=== PATIENT | female | born 1950 | race Caucasian/White ===

== ENCOUNTER 2018-01-26 16:05 | Inpatient (IN) ==
[2018-01-26] MEDS ORDERED: Morphine Inj 4 MG/ML Vial IV.PUSH ONE (16:23)
[2018-01-26] MEDS ORDERED: Lidocaine 1%/Epinephrine 1:100,000 Inj 50 ML Vial INFILTRATN ONE (16:23)
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
[2018-01-26 16:55] LABS: Baso # (Auto) 0.1 th/mm3 (0.0-0.2); Baso % (Auto) 0.5 % (0.0-2.0); Eos # (Auto) 0.1 th/mm3 (0.0-0.4); Eos % (Auto) 0.4 % (0.0-4.0); Hemoglobin 10.9 gm/dL (11.6-15.3); Lymph # (Auto) 2.2 th/mm3 (1.0-4.8); Lymph % (Auto) 15.9 % (9.0-44.0); Mean Corpuscular HGB Conc 35.2 % (32.0-36.0); Mean Corpuscular Hemoglobin 32.1 pg (27.0-34.0); Mean Corpuscular Volume 91.3 fL (80.0-100.0); Mean Platelet Volume 7.8 fL (7.0-11.0); Mono # (Auto) 0.8 th/mm3 (0.0-0.9); Neut # (Auto) 10.8 th/mm3 (1.8-7.7); Neut % (Auto) 77.2 % (16.0-70.0); Platelet Count 322 th/mm3 (150-450); White Blood Count 13.9 th/mm3 (4.0-11.0)
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
[2018-01-26 17:21] LABS: Calcium 8.3 mg/dL (8.5-10.1); Potassium 3.7 meq/L (3.5-5.1)
[2018-01-26 17:35] LABS: Activated Partial Thrombo Time 19.2 sec (24.3-30.1); Prothrombin Time 10.3 sec (9.8-11.6)
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
[2018-01-26] MEDS ORDERED: Morphine Sulfate Inj 2 MG/ML Vial IV.PUSH ONE (18:21)
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
[2018-01-26] MEDS ORDERED: ceFAZolin 2 GM Premix Inj 2 GM/50 ML PIGGYBACK IV.SIG ONE (18:44)
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
[2018-01-26] MEDS ORDERED: Naloxone Inj 0.4 MG/ML Vial IV.PUSH PRN ×3 (20:00→22:19)
[2018-01-26] MEDS ORDERED: Bisacodyl 10 MG Supp RECTAL PRN (20:00)
[2018-01-26] MEDS ORDERED: Post-op Orders (for Pharmacy) OTHER ONE (20:00)
[2018-01-26] MEDS ORDERED: Lidocaine PF 1% Inj 30 ML Vial ONE (20:09)
[2018-01-26] MEDS ORDERED: HYDROmorphone PF Inj 2 MG/ML Vial ONE (20:09)
[2018-01-26] MEDS ORDERED: HYDROmorphone PF Inj 2 MG/ML Vial IV.PUSH ONE (20:15)
[2018-01-26] MEDS: Sod Chloride 0.9% Inj 1,000 ML IV.CONT SCH (21:08)
--- NOTE | 2018-01-26 21:16 | XR ---
EXAM DATE: 01/26/2018 12:00 AM EDT AGE/SEX: 67 years / Female INDICATIONS: Status post left sided chest tube placement. CLINICAL DATA: This is the patient's subsequent encounter. Patient reports that signs and symptoms h ave been present for 1 day and indicates a pain score of 8/10. MEDICAL/SURGICAL HISTORY: None. None. COMPARISON: [facility] [place], CT CHEST W CONTRAST, 01/26/2018. [facility] [place], CHEST 1V SINGLE AP, 01/26/2018. . FINDINGS: A left chest tube is now present. Tip projects over the left suprahilar region. No definite pneumotho rax but there is left chest wall emphysema. There is patchy parenchymal consolidation of the left robert g. Right lung appears clear. Left clavicle and multiple left rib fractures are again noted. CONCLUSION: 1. New left chest tube. 2. No perceptible pneumothorax but left chest wall emphysema again noted. 3. Patchy parenchymal consolidation of the left lung, mostly at the base. 4. No perceptible pleural effusion/hemothorax. 5. Left clavicle and rib fractures again seen. 6. Right lung appears clear. Electronically signed by: Martinez Silva MD 01/26/2018 9:14 PM EDT
[2018-01-26] MEDS ORDERED: Morphine Inj 30 MG/30 ML PCA.VIAL PCA PRN (22:19)
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
[2018-01-26] MEDS: Senna/Docusate Sodium 8.6/50 MG Tablet PO SCH (22:24)
[2018-01-26] MEDS ORDERED: Sodium Chloride 0.9% 2 ML Flush PRN IV.FLUSH (22:59)
[2018-01-27] MEDS ORDERED: ceFAZolin Inj 1,000 MG in Sodium Chlor 0.9% Inj 100 ML IV.SIG SCH (04:00)
--- NOTE | 2018-01-27 04:33 | XR ---
EXAM DATE: 01/27/2018 12:00 AM EDT AGE/SEX: 67 years / Female INDICATIONS: Shortness of breath. CLINICAL DATA: This is the patient's subsequent encounter. Patient reports that signs and symptoms h ave been present for 2 days and indicates a pain score of Nonresponsive. MEDICAL/SURGICAL HISTORY: Hypertension. Smoker. Breast augmentation. COMPARISON: . FINDINGS: Left thoracostomy tube is stable and satisfactory position. Persistent left chest pleural-parenchymal opacity. Mild subcutaneous emphysema. Rib and clavicle fractures. Right chest stable and clear. CONCLUSION: Left thoracostomy tube stable in satisfactory position. No new acute findings Electronically signed by: Martinez Desai MD 01/27/2018 4:32 AM EDT
[2018-01-27 06:13] LABS: VBG Base Excess -2.2 mmol/L (-2-2); VBG PCO2 49 mmHG (44-48); VBG PO2 46 mmHG (35-40)
[2018-01-27 07:04] LABS: Baso % (Auto) 0.1 % (0.0-2.0); Hematocrit 32.6 % (35.0-46.0); Hemoglobin 10.8 gm/dL (11.6-15.3); Lymph % (Auto) 9.3 % (9.0-44.0); Mean Corpuscular HGB Conc 33.3 % (32.0-36.0); Mean Corpuscular Hemoglobin 30.4 pg (27.0-34.0); Mean Corpuscular Volume 91.3 fL (80.0-100.0); Mean Platelet Volume 8.2 fL (7.0-11.0); Neut # (Auto) 8.9 th/mm3 (1.8-7.7); Neut % (Auto) 81.6 % (16.0-70.0); Platelet Count 286 th/mm3 (150-450); Red Blood Count 3.57 mil/mm3 (4.00-5.30); Red Cell Distribution Width 13.9 % (11.6-17.2); White Blood Count 10.9 th/mm3 (4.0-11.0)
[2018-01-27 07:10] LABS: Prothrombin Time 9.8 sec (9.8-11.6)
[2018-01-27] MEDS ORDERED: Methocarbamol 500 MG Tablet PO SCH (07:30)
[2018-01-27 07:42] LABS: Carbon Dioxide 26.2 meq/L (21.0-32.0); Potassium 4.5 meq/L (3.5-5.1)
[2018-01-27] MEDS ORDERED: Influenza (Quadrivalent) Vaccine 0.5 ML Syringe IM ONE (09:00)
[2018-01-27] MEDS: Sod Chloride 0.9% Inj 1,000 ML IV.CONT SCH ×2 (09:26→18:56)
[2018-01-27] MEDS: amLODIPine 5 MG Tablet PO SCH (09:27)
[2018-01-27] MEDS: Lisinopril 20 MG Tablet PO SCH (09:27)
[2018-01-27] MEDS: Sodium Chloride 0.9% 2 ML Flush BID IV.FLUSH SCH ×2 (09:28→20:03)
[2018-01-27] MEDS: Senna/Docusate Sodium 8.6/50 MG Tablet PO SCH ×2 (09:28→20:03)
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
--- NOTE | 2018-01-27 11:58 | US ---
EXAM DATE: 01/27/2018 12:00 AM EDT AGE/SEX: 67 years / Female INDICATIONS: Bilateral carotid bruit. CLINICAL DATA: This is the patient's initial encounter. Patient reports that signs and symptoms have been present for 1 day and indicates a pain score of 0/10. MEDICAL/SURGICAL HISTORY: Hypertension. Breast augmentation. COMPARISON: . VELOCITY PARAMETERS: ICA/CCA Ratio: Right 1.5 , Left 1.4 ICA: Right 104 cm/sec, Left 117 cm/sec CCA: Right 71 cm/sec, Left 82 cm/sec ECA: Right 80 cm/sec, Left 83 cm/sec Vertebral: Right 39 cm/sec antegrade, Left 88 cm/sec antegrade FINDINGS: Right Carotid: No significant plaque is visualized.The waveforms are within normal limits. Left Carotid: No significant plaque is visualized. The waveforms are within normal limits. Other: None. CONCLUSION: Negative carotid ultrasound examination. Electronically signed by: Martinez Caraballo MD 01/27/2018 11:57 AM EDT
[2018-01-27] MEDS: Ketorolac Inj 30 MG/ML (IVP) Vial IV.PUSH SCH ×3 (12:20→23:03)
[2018-01-27] MEDS: Enoxaparin Inj 40 MG/0.4 ML Syringe SQ SCH (12:43)
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
[2018-01-27] MEDS: Lidocaine 5% Patch T-DERMAL SCH (12:57)
--- NOTE | 2018-01-27 13:12 | ECG ---
Date Performed: 01/26/2018 Time Performed: 22:29:54 PTAGE: 67 years EKG: SINUS BRADYCARDIA INCOMPLETE RIGHT BUNDLE BRANCH BLOCK BORDERLINE ECG NO PREVIOUS TRACING DOCTOR: Caridad Licona Interpretating Date/Time 01/27/2018 13:08:30
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
--- NOTE | 2018-01-27 16:07 | MP ---
cc: Estela Lal MD DATE OF OPERATION: 01/26/2018 DATE OF SURGERY: 01/26/2018. PREOPERATIVE DIAGNOSIS: Left hemopneumothorax, with serial rib fractures. POSTOPERATIVE DIAGNOSIS: Left hemopneumothorax, with serial rib fractures. OPERATIVE PROCEDURE: Left chest tube placement. SURGEON: Jenaro Lal MD. ANESTHESIA: 1% Xylocaine and 1 mg Dilaudid IV. ESTIMATED BLOOD LOSS: Minimal. DESCRIPTION OF PROCEDURE: The patient was prepped and draped in usual fashion. The area infiltrated with Xylocaine, incision made in the fifth intercostal space in mid axillary line and deepened with a hemostat into the chest cavity. A 28-Bangladeshi chest tube was placed and sutured in place with 0 silk connected to the Pleur-Evac. About 300 mL of blood obtained and then the drainage stopped. Lung is fully inflated on the post placement chest x-ray. Dressing applied. The patient tolerated the procedure well. MD AQUILES Card/adams/jaquelin , 11:23 AM , 11:28 AM
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
[2018-01-28] MEDS: Sod Chloride 0.9% Inj 1,000 ML IV.CONT SCH ×2 (04:25→18:07)
[2018-01-28 05:06] LABS: Hematocrit 30.4 % (35.0-46.0); Hemoglobin 10.1 gm/dL (11.6-15.3); Mean Corpuscular HGB Conc 33.4 % (32.0-36.0); Mean Corpuscular Hemoglobin 30.7 pg (27.0-34.0); Mean Corpuscular Volume 91.8 fL (80.0-100.0); Mean Platelet Volume 8.2 fL (7.0-11.0); Platelet Count 248 th/mm3 (150-450); Red Blood Count 3.31 mil/mm3 (4.00-5.30); White Blood Count 12.8 th/mm3 (4.0-11.0)
[2018-01-28 05:31] LABS: Calcium 7.8 mg/dL (8.5-10.1); Carbon Dioxide 25.2 meq/L (21.0-32.0); Potassium 4.1 meq/L (3.5-5.1)
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
[2018-01-28] MEDS: Ketorolac Inj 30 MG/ML (IVP) Vial IV.PUSH SCH ×4 (06:41→22:01)
[2018-01-28] MEDS ORDERED: Naloxone Inj 0.4 MG/ML Vial IV.PUSH PRN (09:44)
[2018-01-28] MEDS ORDERED: HYDROmorphone PCA Inj 6 MG/30 ML PCA.VIAL PCA PRN (09:44)
[2018-01-28] MEDS ORDERED: HYDROmorphone PF Inj 2 MG/ML Vial IV.PUSH ONE (10:00)
[2018-01-28] MEDS: Senna/Docusate Sodium 8.6/50 MG Tablet PO SCH ×2 (10:19→22:03)
[2018-01-28] MEDS: Enoxaparin Inj 40 MG/0.4 ML Syringe SQ SCH (10:19)
[2018-01-28] MEDS: Lidocaine 5% Patch T-DERMAL SCH (10:19)
[2018-01-28 10:20] LABS: ABG Base Excess -3.3 mmol/L (-2-2); ABG PCO2 49 mmHg (38-42); ABG PO2 57 mmHg (61-120)
[2018-01-28] MEDS: amLODIPine 5 MG Tablet PO SCH (10:20)
[2018-01-28] MEDS: Lisinopril 20 MG Tablet PO SCH (10:20)
[2018-01-28] MEDS: Sodium Chloride 0.9% 2 ML Flush BID IV.FLUSH SCH ×2 (10:21→22:31)
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
[2018-01-28 14:24] LABS: ABG Base Excess -2.7 mmol/L (-2-2); ABG PCO2 47 mmHg (38-42); ABG PO2 81 mmHg (61-120)
--- NOTE | 2018-01-28 15:04 | CT ---
EXAM DATE: 01/28/2018 2:11 PM EDT AGE/SEX: 67 years / Female INDICATIONS: Altered mental status. CLINICAL DATA: This is the patient's initial encounter. Patient reports that signs and symptoms have been present for 1 day and indicates a pain score of Nonresponsive. MEDICAL/SURGICAL HISTORY: Hypertension. None. RADIATION DOSE: 56.35 CTDI (mGy) COMPARISON: [facility] [place], CT HEAD W/O CONTRAST, 01/26/2018. . TECHNIQUE: CT of the head without contrast. Using automated exposure control and adjustment of the mA and/or kV according to patient size, radiation dose was kept as low as reasonably achievable to ob tain optimal diagnostic quality images. DICOM format image data is available electronically for revi ew and comparison. FINDINGS: Cerebrum: The ventricles are normal for age. No evidence of midline shift, mass lesion, hemorrhage or acute infarction. No extraaxial fluid collections are seen. Posterior Fossa: The cerebellum and brainstem are intact. The 4th ventricle is midline. The cerebe llopontine angle is unremarkable. Extracranial: The visualized portion of the orbits is intact. Improved soft tissue swelling over the left parietal calvarium. Skull: The calvaria is intact. No evidence of skull fracture. CONCLUSION: 1. Stable and grossly unremarkable CT scan of the brain compared to the prior examination. . Electronically signed by: Alonso Parmar MD 01/28/2018 3:03 PM EDT
[2018-01-29] MEDS: Sod Chloride 0.9% Inj 1,000 ML IV.CONT SCH ×3 (02:14→19:44)
[2018-01-29 04:10] LABS: Baso % (Auto) 0.3 % (0.0-2.0); Eos # (Auto) 0.1 th/mm3 (0.0-0.4); Eos % (Auto) 0.7 % (0.0-4.0); Hematocrit 28.8 % (35.0-46.0); Hemoglobin 9.5 gm/dL (11.6-15.3); Lymph # (Auto) 1.9 th/mm3 (1.0-4.8); Lymph % (Auto) 16.1 % (9.0-44.0); Mean Corpuscular Hemoglobin 31.4 pg (27.0-34.0); Mean Corpuscular Volume 95.1 fL (80.0-100.0); Mean Platelet Volume 8.4 fL (7.0-11.0); Mono # (Auto) 0.6 th/mm3 (0.0-0.9); Mono % (Auto) 5.5 % (0.0-8.0); Neut % (Auto) 77.4 % (16.0-70.0); Platelet Count 201 th/mm3 (150-450); Red Blood Count 3.03 mil/mm3 (4.00-5.30); Red Cell Distribution Width 14.5 % (11.6-17.2); White Blood Count 11.7 th/mm3 (4.0-11.0)
[2018-01-29 04:33] LABS: Carbon Dioxide 21.9 meq/L (21.0-32.0); Potassium 4.3 meq/L (3.5-5.1)
--- NOTE | 2018-01-29 04:41 | XR ---
EXAM DATE: 01/29/2018 12:00 AM EDT AGE/SEX: 67 years / Female INDICATIONS: Evaluate for pneumothorax, shortness of breath. CLINICAL DATA: This is the patient's subsequent encounter. Patient reports that signs and symptoms h ave been present for 4 - 6 days and indicates a pain score of 0/10. MEDICAL/SURGICAL HISTORY: Hypertension. Breast augmentation. Chest tube, left. COMPARISON: [facility] [place], CHEST 1V SINGLE AP, 01/28/2018. [facility] [place], CHEST 1V SINGLE AP, 01/27/2018. . FINDINGS: Portable AP upright single view of the chest demonstrates a normal-sized cardiac silhouette. There is a large bore left chest tube in place with tip medially near the apex of the hemithorax. No definite pneumothorax is identified. However, there is increased opacity in the mid and lower lung zone. The left rib and clavicle fractures remain visualized and there is persistent mild left chest wall subcut aneous emphysema. CONCLUSION: 1. Left chest tube remains present. No definite pneumothorax is seen. 2. However, there is new increased airspace opacity and possible pleural-based opacity on the left. 3. Left clavicle and rib fractures remain visualized. Electronically signed by: Martinez Cedillo MD 01/29/2018 4:40 AM EDT
[2018-01-29] MEDS ORDERED: Amiodarone Inj 150 MG in Dextrose 5% in Water Inj 97 ML IV.SIG ONE ×2 (06:19)
[2018-01-29] MEDS: Ketorolac Inj 30 MG/ML (IVP) Vial IV.PUSH SCH ×2 (07:29→13:46)
[2018-01-29] MEDS ORDERED: Midazolam Inj 5 MG/ML 1 ML Vial ONE (07:44)
[2018-01-29] MEDS ORDERED: Midazolam Inj 5 MG/ML 1 ML Vial IV.PUSH ONE (08:00)
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
[2018-01-29] MEDS: fentaNYL 10 mcg/mL Premix Drip 2,500 MCG/250 ML BAG IV.SIG PRN (08:30)
[2018-01-29] MEDS: Propofol 1000 mg/100 ml Inj 1,000 MG/100 ML BOTTLE IV.CONT PRN ×2 (08:30→15:58)
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
--- NOTE | 2018-01-29 08:32 | P.PCN ---
Procedure: Diagnosis: Acute hypoxemic respiratory failure, multiple left rib fractures Procedure: Orotracheal intubation using #8 cuffed tube Narrative: Timeout performed, patient suitably identified. Gentle bag mask ventilation during the administration of Versed 5 mg intravenous. Usual ICU monitoring devices in place. Oxygen saturation 88%. Easily ventilated. Rocuronium 50 mg administered IV. Patient intubated the orotracheal route using #8 tube. Position confirmed with CO2 detection, bilateral breath sounds, sats 100% sustained. Chest x-ray ordered will review for position.
[2018-01-29] MEDS ORDERED: dilTIAZem Inj 125 MG in Sodium Chlor 0.9% Inj 100 ML IV.CONT PRN (09:00)
[2018-01-29 09:25] LABS: ABG Base Excess -3.4 mmol/L (-2-2); ABG PCO2 35 mmHg (38-42); ABG PO2 71 mmHg (61-120)
[2018-01-29] MEDS: amLODIPine 5 MG Tablet PO SCH (09:39)
[2018-01-29] MEDS: Lisinopril 20 MG Tablet PO SCH (09:39)
[2018-01-29 10:31] LABS: Magnesium 2.7 mg/dL (1.5-2.5); Phosphorus 2.2 mg/dL (2.5-4.9)
[2018-01-29] MEDS: Lidocaine 5% Patch T-DERMAL SCH (10:34)
[2018-01-29] MEDS: Senna/Docusate Sodium 8.6/50 MG Tablet PO SCH ×2 (10:35→21:02)
[2018-01-29] MEDS: Sodium Chloride 0.9% 2 ML Flush BID IV.FLUSH SCH ×2 (10:35→21:03)
[2018-01-29] MEDS: Enoxaparin Inj 40 MG/0.4 ML Syringe SQ SCH (10:36)
--- NOTE | 2018-01-29 11:37 | XR ---
EXAM DATE: 01/29/2018 11:07 AM EDT AGE/SEX: 67 years / Female INDICATIONS: ET tube placement and left sided central line placement. CLINICAL DATA: This is the patient's subsequent encounter. Patient reports that signs and symptoms h ave been present for 4 - 6 days and indicates a pain score of Nonresponsive. MEDICAL/SURGICAL HISTORY: . Hypertension. . Breast augmentation. Chest tube, left. COMPARISON: [facility] [place], CHEST 1V SINGLE AP, 01/29/2018. . FINDINGS: A single AP view of the chest demonstrates left basilar pleural-parenchymal density. Minimal density in the right lung. Endotracheal tube with tip just above the emre. Left jugular central line with t ip in the SVC. Nasogastric tube with tip in stomach. Left-sided chest tube without pneumothorax. Subc utaneous emphysema on the left. CONCLUSION: 1. Endotracheal tube with tip just above the emre. 2. Left jugular central line without pneumothorax. 3. No left-sided pneumothorax. Electronically signed by: Manan Cabral MD 01/29/2018 11:36 AM EDT
--- NOTE | 2018-01-29 13:05 | P.PNNS ---
Subjective Interval history: Pt went into Afib this morning with RVR. She is now intubated and sedated. Prior to being intubated she was awake and alert following commands, and moving all 4 extremities. <Manan Le - Last Filed: 01/29/18 13:06> Physical Exam Vital signs: Vital Signs 01/28/18 13:22 01/28/18 13:23 01/28/18 15:00 Temperature Pulse Rate 97 H Respiratory Rate 13 13 16 Blood Pressure Pulse Oximetry 01/28/18 16:00 01/28/18 20:00 01/28/18 20:10 Temperature 98.1 F 98.3 F Pulse Rate 90 102 H Respiratory Rate 12 19 Blood Pressure 107/61 116/72 Pulse Oximetry 99 100 100 01/28/18 20:13 01/28/18 22:16 01/29/18 00:00 Temperature 98.4 F Pulse Rate 99 H 88 Respiratory Rate 15 21 Blood Pressure 97/58 L Pulse Oximetry 100 95 01/29/18 03:27 01/29/18 04:00 Temperature 98.4 F Pulse Rate 102 H 94 H Respiratory Rate 18 23 Blood Pressure 115/62 Pulse Oximetry 91 L Intake & Output 01/28/18 01/29/18 01/29/18 18:59 06:59 18:59 Intake Total 1960 / 1960 100 / 100 1480 / 1480 Output Total 260 / 260 300 / 300 Balance 1700 / 1700 100 / 100 1180 / 1180 Weight 65.7 kg Intake: IV 1000 / 1000 100 / 100 1000 / 1000 NS Inj 1,000 ML @ 100 mls/hr IV 1000 / 1000 1000 / 1000 .CONT .Q10H REBEKAH Rx#:[id number] Cordarone Inj 150 MG In D5W Inj 100 / 100 97 ML @ 600 mls/hr IV.SIG ONCE ONE Rx#:[id number] Ancef Inj 1,000 MG In NS Inj 0 / 0 100 ML @ 200 mls/hr IV.SIG Q8H REBEKAH Rx#:[id number] Oral 960 / 960 480 / 480 Output: Urine 110 / 110 300 / 300 Chest Tube Drainage 150 / 150 #1 Left Upper Mid-Axillary 150 / 150 Chest Other: # Voids 1 Date of Last Bowel Movement 01/26/18 01/26/18 # Bowel Movements 0 - Constitutional Comments: Pt intubated and sedated. - Routine HEENT Exam Eye: Absent: PERRL (Pupils 2mm currently not reactive secondary to small size from medications for intubation.), conjunctival icterus ENT: Absent: oropharynx clear (ET intubated.) - Routine Neck Exam Present: trachea midline - Routine Respiratory Exam Present: patient mechanically ventilated (Pressure controlled rate 16. Peep 8. FiO2 60%.), CTA bilaterally. Absent: rhonchi, wheezes Comments: Left chest tube in place. - Routine Cardiovascular Exam Present: tachycardia, irregularly irregular. Absent: murmur - Routine Abdominal Exam Present: soft. Absent: normoactive bowel sounds (Diminished bs.) - Routine Skin Exam Absent: cyanosis, erythema - Routine Neurological Exam Present: moving all extremities. Absent: alert (Intubated this morning. Pupils 2mm bilaterally Nonreactive bilaterally. Pt was awake and alert prior to being intubated. She was following commands.) - Routine Psychiatric Exam Present: unable to assess <Manan Le - Last Filed: 01/29/18 13:06> Vital signs: Vital Signs 01/28/18 20:00 01/28/18 20:10 01/28/18 20:13 Temperature 98.3 F Pulse Rate 102 H 99 H Respiratory Rate 19 15 Blood Pressure 116/72 Pulse Oximetry 100 100 01/28/18 22:16 01/29/18 00:00 01/29/18 03:27 Temperature 98.4 F Pulse Rate 88 102 H Respiratory Rate 21 18 Blood Pressure 97/58 L Pulse Oximetry 100 95 01/29/18 04:00 01/29/18 08:00 01/29/18 12:00 Temperature 98.4 F 101.2 F H 100.7 F H Pulse Rate 94 H 150 H 89 Respiratory Rate 23 25 H 14 Blood Pressure 115/62 145/92 H 107/65 Pulse Oximetry 91 L 98 100 01/29/18 16:00 01/29/18 16:25 01/29/18 16:28 Temperature 98.6 F Pulse Rate 73 79 Respiratory Rate 14 16 16 Blood Pressure 82/53 L Pulse Oximetry 100 100 Intake & Output 01/28/18 01/29/18 01/29/18 18:59 06:59 18:59 Intake Total 1960 / 1960 100 / 100 1830 / 1830 Output Total 260 / 260 300 / 300 Balance 1700 / 1700 100 / 100 1530 / 1530 Weight 65.7 kg Intake: IV 1000 / 1000 100 / 100 1350 / 1350 Cordarone Inj 450 MG In D5W Inj 250 / 250 241 ML @ 1 MG/MIN 33.33 mls/hr IV.CONT TITRATE PRN Rx#: [id number] Diprivan 1000 mg/100 ml Inj 1, 100 / 100 000 mg In 100 ml @ 5 MCG/KG/MIN 1.971 mls/hr IV.CONT TITRATE PRN Rx#:[id number] NS Inj 1,000 ML @ 100 mls/hr IV 1000 / 1000 1000 / 1000 .CONT .Q10H REBEKAH Rx#:[id number] Cordarone Inj 150 MG In D5W Inj 100 / 100 97 ML @ 600 mls/hr IV.SIG ONCE ONE Rx#:[id number] Ancef Inj 1,000 MG In NS Inj 0 / 0 100 ML @ 200 mls/hr IV.SIG Q8H REBEKAH Rx#:[id number] Oral 960 / 960 480 / 480 Output: Urine 110 / 110 300 / 300 Chest Tube Drainage 150 / 150 #1 Left Upper Mid-Axillary 150 / 150 Chest Other: # Voids 1 Date of Last Bowel Movement 01/26/18 01/26/18 01/26/18 # Bowel Movements 0 <Yuniel Yo - Last Filed: 01/29/18 18:27> Assessment and Plan - Assessment (1) Flail chest Code(s): S22.5XXA - Flail chest, initial encounter for closed fracture Status : Acute (2) Left pulmonary contusion Code(s): S27.321A - Contusion of lung, unilateral, initial encounter Status: Acute (3) Acute hypoxemic respiratory failure Code(s): J96.01 - Acute respiratory failure with hypoxia Status: Acute (4) Pneumohemothorax, traumatic Code(s): S27.2XXA - Traumatic hemopneumothorax, initial encounter Status: Acute (5) Multiple fractures of ribs Code(s): S22.49XA - Multiple fractures of ribs, unspecified side, initial encounter for closed fracture Status: Acute (6) Fracture of clavicle, left, open Code(s): S42.002B - Fracture of unspecified part of left clavicle, initial encounter for open fracture Status: Acute (7) Closed L1 vertebral fracture Code(s): S32.019A - Unspecified fracture of first lumbar vertebra, initial encounter for closed fracture Status: Acute - Plan A: 67yoF in [facility], CT L-spine showing L1 compression fx. CT head negative, CT C-spine negative. P: Continue with LSO brace x 6 weeks and f/u in [facility] at that time with x-rays prior to visit Continue with critical care. <Manan Le - Last Filed: 01/29/18 13:06> - Attending Attestation The exam, history, and the medical decision-making described in the above note were completed with the assistance of the mid-level provider. I reviewed and agree with the findings presented. I attest that I had a [id number] encounter with the patient on the same day, and personally performed and documented my assessment and findings in the medical record. <Yuniel Yo - Last Filed: 01/29/18 18:27>
[2018-01-29] MEDS: Oral Hygiene Kit OROPHARYNG SCH (15:58)
[2018-01-29] MEDS ORDERED: Phenylephrine Inj 40 MG in Dextrose 5% in Water Inj 496 ML IV.CONT PRN ×2 (17:00)
--- NOTE | 2018-01-29 17:02 | ECG ---
Date Performed: 01/29/2018 Time Performed: 06:05:30 PTAGE: 67 years EKG: Atrial fibrillation with uncontrolled ventricular response. Abnormal ECG Since PREVIOUS TRACING , now with RVR PREVIOUS TRACIN01/29/2018 05.43 DOCTOR: Shannon Perez Interpretating Date/Time 01/29/2018 17:02:01
--- NOTE | 2018-01-29 17:09 | ECG ---
Date Performed: 01/29/2018 Time Performed: 05:43:52 PTAGE: 67 years EKG: Sinus tachycardia with PAC(s). Normal ECG except for rate Since PREVIOUS TRACING , now tachycardic PREVIOUS TRACIN01/26/2018 22.29 DOCTOR: Shannon Perez Interpretating Date/Time 01/29/2018 17:08:28
[2018-01-29] MEDS: Chlorhexidine 0.12% Oral Kit 15 ML UDC OROPHARYNG SCH (21:03)
[2018-01-29] MEDS ORDERED: Magnesium Sulfate Inj 4 GM in Sodium Chlor 0.9% Inj 92 ML IV.SIG PRN (21:15)
[2018-01-29] MEDS ORDERED: Potassium Chlor 40 mEq Premix 40 MEQ/100 ML PIGGYBACK IV.SIG PRN ×2 (21:15)
[2018-01-29] MEDS ORDERED: Potassium Phosphate Inj 30 MMOL in Sodium Chlor 0.9% Inj 250 ML IV.SIG PRN (21:15)
[2018-01-29] MEDS ORDERED: Magnesium Sulfate Inj 2 GM in Sodium Chlor 0.9% Inj 96 ML IV.SIG PRN (21:15)
[2018-01-29] MEDS ORDERED: Magnesium Oxide 400 MG Tablet PO PRN (21:15)
[2018-01-29] MEDS ORDERED: Sodium Phosphate Inj 30 MMOL in Sodium Chlor 0.9% Inj 250 ML IV.SIG PRN (21:15)
[2018-01-29] MEDS ORDERED: Potassium Chlor 20 mEq Premix 20 MEQ/100 ML PIGGYBACK IV.SIG PRN ×2 (21:15)
[2018-01-29] MEDS ORDERED: Potassium Phosphate 500 MG Soluble Tablet PO PRN ×2 (21:15)
[2018-01-30] MEDS: Oral Hygiene Kit OROPHARYNG SCH ×4 (00:22→17:59)
[2018-01-30] MEDS: Famotidine 20 MG Tablet PO SCH ×3 (02:21→20:34)
[2018-01-30] MEDS: Propofol 1000 mg/100 ml Inj 1,000 MG/100 ML BOTTLE IV.CONT PRN ×3 (04:46→20:55)
[2018-01-30 05:28] LABS: Baso % (Auto) 0.3 % (0.0-2.0); Eos # (Auto) 0.2 th/mm3 (0.0-0.4); Eos % (Auto) 1.7 % (0.0-4.0); Hematocrit 23.8 % (35.0-46.0); Hemoglobin 7.8 gm/dL (11.6-15.3); Lymph # (Auto) 1.3 th/mm3 (1.0-4.8); Lymph % (Auto) 14.3 % (9.0-44.0); Mean Corpuscular Hemoglobin 30.6 pg (27.0-34.0); Mean Corpuscular Volume 92.7 fL (80.0-100.0); Mean Platelet Volume 8.2 fL (7.0-11.0); Mono # (Auto) 0.7 th/mm3 (0.0-0.9); Mono % (Auto) 7.7 % (0.0-8.0); Neut # (Auto) 6.7 th/mm3 (1.8-7.7); Platelet Count 222 th/mm3 (150-450); Red Blood Count 2.56 mil/mm3 (4.00-5.30); Red Cell Distribution Width 14.2 % (11.6-17.2); White Blood Count 8.8 th/mm3 (4.0-11.0)
[2018-01-30 05:40] LABS: ABG Base Excess -4.6 mmol/L (-2-2); ABG PCO2 33 mmHg (38-42); ABG PO2 82 mmHg (61-120)
[2018-01-30] MEDS: Sod Chloride 0.9% Inj 1,000 ML IV.CONT SCH ×2 (05:44→17:56)
[2018-01-30 05:51] LABS: Calcium 7.3 mg/dL (8.5-10.1); Carbon Dioxide 21.9 meq/L (21.0-32.0); Potassium 4.1 meq/L (3.5-5.1)
[2018-01-30 06:08] LABS: Total Protein 5.5 g/dL (6.4-8.2)
--- NOTE | 2018-01-30 07:50 | XR ---
EXAM DATE: 01/30/2018 12:00 AM EDT AGE/SEX: 67 years / Female INDICATIONS: Evaluate for pneumothorax. CLINICAL DATA: This is the patient's subsequent encounter. Patient reports that signs and symptoms h ave been present for 4 - 6 days and indicates a pain score of Nonresponsive. MEDICAL/SURGICAL HISTORY: Hypertension. Breast augmentation. Chest tube, left. COMPARISON: C, CHEST 1V SINGLE AP, 01/29/2018. . FINDINGS: Endotracheal tube tip in satisfactory position at the inferior margin of the clavicles. Left jugular line tip overlies the SVC. Enteric tube courses beneath the diaphragm. There is subcutaneous air left lateral chest. Left-sided chest tube is noted. I do not see an obvious pneumothorax. There is consol idation and left effusion identified. CONCLUSION: No obvious pneumothorax. Electronically signed by: Adelfo Armendariz MD 01/30/2018 7:48 AM EDT
[2018-01-30] MEDS: Chlorhexidine 0.12% Oral Kit 15 ML UDC OROPHARYNG SCH ×2 (08:39→20:34)
[2018-01-30] MEDS: Senna/Docusate Sodium 8.6/50 MG Tablet PO SCH ×2 (08:39→20:34)
[2018-01-30] MEDS: Sodium Chloride 0.9% 2 ML Flush BID IV.FLUSH SCH ×2 (08:40→20:34)
[2018-01-30] MEDS: Enoxaparin Inj 40 MG/0.4 ML Syringe SQ SCH (08:40)
[2018-01-30] MEDS: amLODIPine 5 MG Tablet PO SCH (08:40)
[2018-01-30] MEDS: Lisinopril 20 MG Tablet PO SCH (08:40)
[2018-01-30] MEDS ORDERED: Bisacodyl 10 MG Supp RECTAL ONE (09:59)
--- NOTE | 2018-01-30 10:47 | P.DIET ---
Nutritional Evaluation Type of nutrition evaluation: initial Nutrition consult regarding: Tube Feeding Subjective Subjective Comments: LONG-TERM/passenger Objective - Diagnosis Pneumohemi thorax, multiple rib fxs - Objective % IBW: 115 (IBW = 115#) Body Weight Used for Calculations: Actual (60.3 kg (admission wt)) Energy Needs - Lower Range (kCal/kg): 25 Energy Needs - Upper Range (kCal/kg): 30 Lower Limit kCal/kg (kCals): 1,508 Upper Limit kCal/kg (kCals): 1,809 Lower Limit Protein Factor (Grams per Kg): 1.0 Upper Limit Protein Factor (Grams per Kg): 1.5 Lower Protein Needs (Protein): 60 Upper Protein Needs (Protein): 90 Dietitian Reviewed in Medical Record: Curent medications, Intake & Output, Labs , Medical history, Tube feeding Diet Order: NPO Assessment Assessment: Pt is at high nutrition risk 2' to trauma and the need for TFing. Agree with current order for Jevity 1.5 @ 50 mls/hr goal. This will provide 1800 kcals, 77 gms protein and 912 mls of free water. Some additional kcals will be provided by propofol (1.1 kcal/ml). Recommendations: Jevity 1.5 @ 50 mls/hr goal Dietitian to Monitor: Lab values, Intake & Output, Tube feeding tolerance, Weight change, Medical course
[2018-01-30] MEDS: fentaNYL 10 mcg/mL Premix Drip 2,500 MCG/250 ML BAG IV.SIG PRN (11:37)
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
[2018-01-30 14:15] LABS: ABG Base Excess -5.2 mmol/L (-2-2); ABG PCO2 39 mmHg (38-42); ABG PO2 74 mmHg (61-120)
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
[2018-01-31] MEDS: Oral Hygiene Kit OROPHARYNG SCH ×4 (03:35→16:00)
[2018-01-31 05:33] LABS: Baso % (Auto) 0.2 % (0.0-2.0); Eos # (Auto) 0.1 th/mm3 (0.0-0.4); Eos % (Auto) 1.2 % (0.0-4.0); Hematocrit 26.6 % (35.0-46.0); Lymph # (Auto) 0.5 th/mm3 (1.0-4.8); Lymph % (Auto) 7.5 % (9.0-44.0); Mean Corpuscular HGB Conc 33.7 % (32.0-36.0); Mean Corpuscular Hemoglobin 31.4 pg (27.0-34.0); Mean Corpuscular Volume 93.1 fL (80.0-100.0); Mean Platelet Volume 7.5 fL (7.0-11.0); Mono # (Auto) 0.4 th/mm3 (0.0-0.9); Mono % (Auto) 5.4 % (0.0-8.0); Neut # (Auto) 6.2 th/mm3 (1.8-7.7); Neut % (Auto) 85.7 % (16.0-70.0); Platelet Count 226 th/mm3 (150-450); Red Blood Count 2.85 mil/mm3 (4.00-5.30); Red Cell Distribution Width 14.2 % (11.6-17.2); White Blood Count 7.2 th/mm3 (4.0-11.0)
[2018-01-31 05:57] LABS: Calcium 7.1 mg/dL (8.5-10.1); Carbon Dioxide 21.5 meq/L (21.0-32.0); Potassium 4.2 meq/L (3.5-5.1)
[2018-01-31 05:58] LABS: ABG Base Excess -5.2 mmol/L (-2-2); ABG PCO2 33 mmHg (38-42); ABG PO2 132 mmHg (61-120)
[2018-01-31 06:11] LABS: Total Protein 5.6 g/dL (6.4-8.2)
[2018-01-31] MEDS: Propofol 1000 mg/100 ml Inj 1,000 MG/100 ML BOTTLE IV.CONT PRN ×3 (06:55→19:51)
[2018-01-31] MEDS: Sodium Chloride 0.9% 2 ML Flush BID IV.FLUSH SCH ×2 (08:08→21:16)
[2018-01-31] MEDS: Senna/Docusate Sodium 8.6/50 MG Tablet PO SCH ×2 (08:08→21:16)
[2018-01-31] MEDS: Lisinopril 20 MG Tablet PO SCH (08:09)
[2018-01-31] MEDS: amLODIPine 5 MG Tablet PO SCH (08:09)
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
[2018-01-31] MEDS: Enoxaparin Inj 40 MG/0.4 ML Syringe SQ SCH (09:22)
[2018-01-31] MEDS: Famotidine 20 MG Tablet PO SCH ×2 (09:22→21:39)
[2018-01-31] MEDS: Chlorhexidine 0.12% Oral Kit 15 ML UDC OROPHARYNG SCH ×2 (09:23→20:00)
[2018-01-31] MEDS: fentaNYL 10 mcg/mL Premix Drip 2,500 MCG/250 ML BAG IV.SIG PRN (09:46)
--- NOTE | 2018-01-31 12:31 | XR ---
EXAM DATE: 01/31/2018 12:00 AM EDT AGE/SEX: 67 years / Female INDICATIONS: Distention. CLINICAL DATA: This is the patient's subsequent encounter. Patient reports that signs and symptoms h ave been present for 4 - 6 days and indicates a pain score of Nonresponsive. MEDICAL/SURGICAL HISTORY: Hypertension. . Breast augmentation. COMPARISON: No prior exams available for comparison. FINDINGS: Gas-filled loops of nondilated large and small bowel. Nasogastric tube within a decompressed stomach . No abnormal masses, calcifications, or organomegaly is seen. The osseous structures are unremarkab le. CONCLUSION: No dilated bowel loops observed. Electronically signed by: Italo Fallon MD 01/31/2018 12:30 PM EDT
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
[2018-01-31] MEDS: Sod Chloride 0.9% Inj 1,000 ML IV.CONT SCH ×3 (15:44→21:15)
[2018-02-01] MEDS: Propofol 1000 mg/100 ml Inj 1,000 MG/100 ML BOTTLE IV.CONT PRN ×4 (01:30→19:52)
[2018-02-01] MEDS: Sod Chloride 0.9% Inj 1,000 ML IV.CONT SCH ×2 (02:13→06:42)
--- NOTE | 2018-02-01 03:32 | XR ---
EXAM DATE: 02/01/2018 12:00 AM EDT AGE/SEX: 67 years / Female INDICATIONS: Shortness of breath. CLINICAL DATA: This is the patient's subsequent encounter. Patient reports that signs and symptoms h ave been present for 4 - 6 days and indicates a pain score of Nonresponsive. MEDICAL/SURGICAL HISTORY: . Hypertension. Breast augmentation. . Chest tube, left. COMPARISON: [facility], CT CHEST W/O CONTRAST, 01/31/2018. [facility], CHEST 1V SINGLE AP, 01/30/2018. . FINDINGS: Portable AP view of the chest demonstrates a normal-sized cardiac silhouette. ETT, nasogastric tube, and left IJ central line remain present. Large bore left chest tube is in place without an identified pneumothorax. Multiple lines overlie the patient. There is a stable small left basilar pleural-paren chymal opacity with moderate elevation of the left hemidiaphragm. Patchy airspace opacity in the righ t lower lung zone is stable. CONCLUSION: 1. Stable airspace consolidation and small left pleural effusion. 2. Left chest tube remains present and no pneumothorax is visualized. Electronically signed by: Martinez Cedillo MD 02/01/2018 3:30 AM EDT
[2018-02-01] MEDS: Oral Hygiene Kit OROPHARYNG SCH ×4 (04:36→15:34)
[2018-02-01 05:17] LABS: Baso % (Auto) 0.2 % (0.0-2.0); Eos # (Auto) 0.2 th/mm3 (0.0-0.4); Eos % (Auto) 1.7 % (0.0-4.0); Hematocrit 24.3 % (35.0-46.0); Hemoglobin 8.6 gm/dL (11.6-15.3); Lymph % (Auto) 9.4 % (9.0-44.0); Mean Corpuscular HGB Conc 35.4 % (32.0-36.0); Mean Corpuscular Volume 90.6 fL (80.0-100.0); Mean Platelet Volume 7.6 fL (7.0-11.0); Mono % (Auto) 8.9 % (0.0-8.0); Neut # (Auto) 8.7 th/mm3 (1.8-7.7); Neut % (Auto) 79.8 % (16.0-70.0); Platelet Count 270 th/mm3 (150-450); Red Blood Count 2.68 mil/mm3 (4.00-5.30); Red Cell Distribution Width 14.4 % (11.6-17.2); White Blood Count 10.8 th/mm3 (4.0-11.0)
[2018-02-01 05:39] LABS: Calcium 7.6 mg/dL (8.5-10.1); Carbon Dioxide 22.1 meq/L (21.0-32.0); Potassium 3.9 meq/L (3.5-5.1)
[2018-02-01 06:18] LABS: ABG Base Excess -3.4 mmol/L (-2-2); ABG PCO2 33 mmHg (38-42); ABG PO2 110 mmHg (61-120)
[2018-02-01] MEDS: Enoxaparin Inj 40 MG/0.4 ML Syringe SQ SCH (09:11)
[2018-02-01] MEDS: Famotidine 20 MG Tablet PO SCH ×2 (09:11→20:54)
[2018-02-01] MEDS: Senna/Docusate Sodium 8.6/50 MG Tablet PO SCH ×2 (09:11→20:54)
[2018-02-01] MEDS: Chlorhexidine 0.12% Oral Kit 15 ML UDC OROPHARYNG SCH ×2 (09:12→20:54)
[2018-02-01] MEDS: amLODIPine 5 MG Tablet PO SCH (09:13)
[2018-02-01] MEDS: Lisinopril 20 MG Tablet PO SCH (09:13)
[2018-02-01] MEDS: Sodium Chloride 0.9% 2 ML Flush BID IV.FLUSH SCH ×2 (09:13→20:54)
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
[2018-02-01] MEDS: fentaNYL 10 mcg/mL Premix Drip 2,500 MCG/250 ML BAG IV.SIG PRN (10:53)
[2018-02-01] MEDS: Amiodarone 200 MG Tablet PO SCH ×2 (11:24→20:54)
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
[2018-02-02] MEDS: Propofol 1000 mg/100 ml Inj 1,000 MG/100 ML BOTTLE IV.CONT PRN ×4 (00:09→18:31)
[2018-02-02] MEDS: Oral Hygiene Kit OROPHARYNG SCH ×5 (00:15→23:49)
--- NOTE | 2018-02-02 04:27 | XR ---
EXAM DATE: 02/02/2018 6:00 AM EDT AGE/SEX: 67 years / Female INDICATIONS: Respiratory disease. CLINICAL DATA: This is the patient's subsequent encounter. Patient reports that signs and symptoms h ave been present for 1 week and indicates a pain score of Nonresponsive. MEDICAL/SURGICAL HISTORY: Hypertension. . Breast augmentation. Chest tube, left. COMPARISON: [facility], CHEST 1V SINGLE AP, 02/01/2018. . FINDINGS: Endotracheal tube in good position. NG enters stomach. Left central line in superior vena cava. Bilat eral mostly basilar airspace disease similar to prior exam. No pneumothorax. Left clavicle fracture a nd multiple left rib fractures. CONCLUSION: Basilar airspace disease similar to February 01. Support apparatus unchanged. Left chest tube without pneumothorax. Electronically signed by: Giovanni Sotomayor MD 02/02/2018 4:26 AM EDT
[2018-02-02 06:15] LABS: ABG Base Excess -1.8 mmol/L (-2-2); ABG PCO2 37 mmHg (38-42); ABG PO2 93 mmHg (61-120)
[2018-02-02 06:52] LABS: Baso % (Auto) 0.2 % (0.0-2.0); Eos # (Auto) 0.1 th/mm3 (0.0-0.4); Eos % (Auto) 1.2 % (0.0-4.0); Hematocrit 24.8 % (35.0-46.0); Hemoglobin 8.1 gm/dL (11.6-15.3); Lymph # (Auto) 0.5 th/mm3 (1.0-4.8); Lymph % (Auto) 4.4 % (9.0-44.0); Mean Corpuscular HGB Conc 32.5 % (32.0-36.0); Mean Corpuscular Hemoglobin 30.2 pg (27.0-34.0); Mean Corpuscular Volume 92.9 fL (80.0-100.0); Mean Platelet Volume 7.3 fL (7.0-11.0); Mono # (Auto) 1.2 th/mm3 (0.0-0.9); Mono % (Auto) 9.7 % (0.0-8.0); Neut # (Auto) 10.4 th/mm3 (1.8-7.7); Neut % (Auto) 84.5 % (16.0-70.0); Platelet Count 312 th/mm3 (150-450); Red Blood Count 2.67 mil/mm3 (4.00-5.30); Red Cell Distribution Width 14.6 % (11.6-17.2); White Blood Count 12.3 th/mm3 (4.0-11.0)
[2018-02-02 07:20] LABS: Albumin 1.4 g/dL (3.4-5.0); Anion Gap 7 meq/L (5-15); Aspartate Aminotransferase 21 U/L (15-37); Blood Urea Nitrogen 16 mg/dL (7-18); Calcium 7.7 mg/dL (8.5-10.1); Carbon Dioxide 24.5 meq/L (21.0-32.0); Chloride 111 meq/L (98-107); Glomerular Filtration Rate 75 mL/min (>89); Glucose,Random 150 mg/dL (74-106); Potassium 4.4 meq/L (3.5-5.1); Sodium 142 meq/L (136-145)
[2018-02-02 07:24] LABS: Alanine Aminotransferase 21 U/L (10-53); Alkaline Phosphatase 127 U/L (45-117); Total Protein 5.7 g/dL (6.4-8.2)
[2018-02-02] MEDS: Enoxaparin Inj 40 MG/0.4 ML Syringe SQ SCH (08:43)
[2018-02-02] MEDS: amLODIPine 5 MG Tablet PO SCH (08:43)
[2018-02-02] MEDS: Lisinopril 20 MG Tablet PO SCH (08:44)
[2018-02-02] MEDS: Amiodarone 200 MG Tablet PO SCH ×2 (08:44→20:23)
[2018-02-02] MEDS: Sodium Chloride 0.9% 2 ML Flush BID IV.FLUSH SCH ×2 (08:45→20:23)
[2018-02-02] MEDS: Famotidine 20 MG Tablet PO SCH ×2 (08:45→20:23)
[2018-02-02] MEDS: Senna/Docusate Sodium 8.6/50 MG Tablet PO SCH ×2 (08:46→20:23)
[2018-02-02] MEDS: Chlorhexidine 0.12% Oral Kit 15 ML UDC OROPHARYNG SCH ×2 (08:46→20:24)
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
[2018-02-02] MEDS: fentaNYL 10 mcg/mL Premix Drip 2,500 MCG/250 ML BAG IV.SIG PRN (12:57)
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
[2018-02-03] MEDS: Propofol 1000 mg/100 ml Inj 1,000 MG/100 ML BOTTLE IV.CONT PRN ×4 (00:50→18:02)
[2018-02-03] MEDS: Oral Hygiene Kit OROPHARYNG SCH ×3 (03:54→15:27)
[2018-02-03 04:44] LABS: Baso % (Auto) 0.3 % (0.0-2.0); Eos # (Auto) 0.1 th/mm3 (0.0-0.4); Eos % (Auto) 0.6 % (0.0-4.0); Hematocrit 24.2 % (35.0-46.0); Lymph # (Auto) 0.6 th/mm3 (1.0-4.8); Lymph % (Auto) 3.7 % (9.0-44.0); Mean Corpuscular Hemoglobin 30.4 pg (27.0-34.0); Mean Corpuscular Volume 92.2 fL (80.0-100.0); Mean Platelet Volume 7.2 fL (7.0-11.0); Mono # (Auto) 1.5 th/mm3 (0.0-0.9); Mono % (Auto) 8.6 % (0.0-8.0); Neut # (Auto) 14.9 th/mm3 (1.8-7.7); Neut % (Auto) 86.8 % (16.0-70.0); Platelet Count 345 th/mm3 (150-450); Red Blood Count 2.63 mil/mm3 (4.00-5.30); Red Cell Distribution Width 14.7 % (11.6-17.2); White Blood Count 17.2 th/mm3 (4.0-11.0)
[2018-02-03 05:10] LABS: Lymphocytes 5 % (9-44); Metamyelocytes 1 % (0-1); Monocytes 8 % (0-8); Platelet Estimate Normal (Normal); Platelet Morphology Normal (Normal); RBC Morphology Normal (Normal)
[2018-02-03 05:28] LABS: ABG Base Excess 1.1 mmol/L (-2-2); ABG PCO2 35 mmHg (38-42); ABG PO2 96 mmHg (61-120)
[2018-02-03 05:30] LABS: Albumin 1.4 g/dL (3.4-5.0); Anion Gap 6 meq/L (5-15); Aspartate Aminotransferase 18 U/L (15-37); Blood Urea Nitrogen 16 mg/dL (7-18); Carbon Dioxide 27.5 meq/L (21.0-32.0); Chloride 109 meq/L (98-107); Glomerular Filtration Rate 73 mL/min (>89); Glucose,Random 173 mg/dL (74-106); Potassium 4.7 meq/L (3.5-5.1); Sodium 142 meq/L (136-145)
--- NOTE | 2018-02-03 05:41 | XR ---
EXAM DATE: 02/03/2018 6:00 AM EDT AGE/SEX: 67 years / Female INDICATIONS: Respiratory distress. CLINICAL DATA: This is the patient's subsequent encounter. Patient reports that signs and symptoms h ave been present for 1 week and indicates a pain score of Nonresponsive. MEDICAL/SURGICAL HISTORY: Hypertension. Breast augmentation. Chest tube, left. Central line. COMPARISON: [facility], CHEST 1V SINGLE AP, 02/02/2018. . FINDINGS: Endotracheal tube in good position. NG enters stomach. Left central line in superior vena cava. Left chest tube without pneumothorax. Basilar airspace disease bilaterally, left greater than right unchan ged from February 02. No pneumothorax. CONCLUSION: Left chest tube without pneumothorax. Relatively stable basilar airspace disease compared with Octobe r 12. Electronically signed by: Giovanni Sotomayor MD 02/03/2018 5:40 AM EDT
[2018-02-03 05:45] LABS: Alanine Aminotransferase 21 U/L (10-53); Alkaline Phosphatase 145 U/L (45-117); Total Protein 5.9 g/dL (6.4-8.2)
[2018-02-03] MEDS: Chlorhexidine 0.12% Oral Kit 15 ML UDC OROPHARYNG SCH ×2 (09:52→21:09)
[2018-02-03] MEDS: amLODIPine 5 MG Tablet PO SCH (09:53)
[2018-02-03] MEDS: Amiodarone 200 MG Tablet PO SCH ×2 (09:53→21:09)
[2018-02-03] MEDS: Famotidine 20 MG Tablet PO SCH ×2 (09:53→21:09)
[2018-02-03] MEDS: Lisinopril 20 MG Tablet PO SCH (09:54)
[2018-02-03] MEDS: Senna/Docusate Sodium 8.6/50 MG Tablet PO SCH ×2 (09:55→21:09)
[2018-02-03] MEDS: Sodium Chloride 0.9% 2 ML Flush BID IV.FLUSH SCH ×2 (09:55→21:09)
[2018-02-03] MEDS: Enoxaparin Inj 40 MG/0.4 ML Syringe SQ SCH (09:55)
[2018-02-03] MEDS: fentaNYL 10 mcg/mL Premix Drip 2,500 MCG/250 ML BAG IV.SIG PRN (09:57)
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
[2018-02-03] MEDS ORDERED: Vancomycin Consult Pharmacy 1 EACH OTHER SCH (13:00)
[2018-02-03] MEDS: Nystatin Liq 500,000 UNIT/5 ML UDC SWISH-SPIT SCH ×2 (13:29→18:02)
[2018-02-03] MEDS: Piperacil/Tazo 4.5 GM Premix 4.5 GM/100 ML BAG IV.SIG SCH ×2 (13:33→18:02)
[2018-02-03] MEDS: Vancomycin Inj 1,000 MG in Sodium Chlor 0.9% Inj 250 ML IV.SIG SCH (14:46)
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
[2018-02-04] MEDS: Oral Hygiene Kit OROPHARYNG SCH ×5 (00:25→23:37)
[2018-02-04] MEDS: Propofol 1000 mg/100 ml Inj 1,000 MG/100 ML BOTTLE IV.CONT PRN ×3 (00:25→14:57)
[2018-02-04] MEDS: Nystatin Liq 500,000 UNIT/5 ML UDC SWISH-SPIT SCH ×5 (00:25→23:46)
[2018-02-04] MEDS: Piperacil/Tazo 4.5 GM Premix 4.5 GM/100 ML BAG IV.SIG SCH ×4 (00:25→18:15)
[2018-02-04] MEDS: Vancomycin Inj 1,000 MG in Sodium Chlor 0.9% Inj 250 ML IV.SIG SCH ×2 (03:25→13:22)
[2018-02-04 04:52] LABS: Baso % (Auto) 0.2 % (0.0-2.0); Eos # (Auto) 0.2 th/mm3 (0.0-0.4); Eos % (Auto) 1.1 % (0.0-4.0); Hematocrit 22.4 % (35.0-46.0); Hemoglobin 7.3 gm/dL (11.6-15.3); Lymph # (Auto) 1.2 th/mm3 (1.0-4.8); Lymph % (Auto) 5.6 % (9.0-44.0); Mean Corpuscular HGB Conc 32.7 % (32.0-36.0); Mean Corpuscular Hemoglobin 30.4 pg (27.0-34.0); Mean Platelet Volume 6.9 fL (7.0-11.0); Mono # (Auto) 1.5 th/mm3 (0.0-0.9); Mono % (Auto) 7.1 % (0.0-8.0); Neut # (Auto) 18.7 th/mm3 (1.8-7.7); Platelet Count 368 th/mm3 (150-450); Red Cell Distribution Width 15.1 % (11.6-17.2); White Blood Count 21.7 th/mm3 (4.0-11.0)
[2018-02-04 05:28] LABS: Albumin 1.2 g/dL (3.4-5.0); Calcium 7.3 mg/dL (8.5-10.1); Carbon Dioxide 27.5 meq/L (21.0-32.0); Potassium 4.7 meq/L (3.5-5.1); Total Protein 5.4 g/dL (6.4-8.2)
[2018-02-04 05:44] LABS: ABG Base Excess 2.1 mmol/L (-2-2); ABG PCO2 39 mmHg (38-42); ABG PO2 71 mmHg (61-120)
--- NOTE | 2018-02-04 05:49 | XR ---
EXAM DATE: 02/04/2018 6:00 AM EDT AGE/SEX: 67 years / Female INDICATIONS: Respiratory distress. CLINICAL DATA: This is the patient's subsequent encounter. Patient reports that signs and symptoms h ave been present for 1 week and indicates a pain score of Nonresponsive. MEDICAL/SURGICAL HISTORY: Hypertension. Smoker. Breast augmentation. Chest tube, left. Centra l line. [place] [facility] [place]. . FINDINGS: Left central line in superior vena cava. Left chest tube without pneumothorax. Endotracheal tube in g ood position. NG enters stomach. Bilateral mostly basilar airspace disease with pleural fluid. No pne umothorax. Multiple left-sided rib fractures. Left clavicle fracture. CONCLUSION: Support apparatus in good position. Bilateral mostly basilar airspace disease with small pleural effu sions. Electronically signed by: Giovanni Sotomayor MD 02/04/2018 5:48 AM EDT
[2018-02-04 06:58] LABS: Eosinophils 1 % (0-4); Lymphocytes 12 % (9-44); Monocytes 6 % (0-8); Myelocytes 1 % (0-0)
[2018-02-04 07:00] LABS: Platelet Estimate Normal (Normal); Platelet Morphology Normal (Normal); RBC Morphology Normal (Normal)
[2018-02-04] MEDS: Senna/Docusate Sodium 8.6/50 MG Tablet PO SCH ×2 (08:54→20:32)
[2018-02-04] MEDS: Famotidine 20 MG Tablet PO SCH ×2 (10:17→20:32)
[2018-02-04] MEDS: Amiodarone 200 MG Tablet PO SCH ×2 (10:17→20:32)
[2018-02-04] MEDS: Sodium Chloride 0.9% 2 ML Flush BID IV.FLUSH SCH ×2 (10:17→20:33)
[2018-02-04] MEDS: Chlorhexidine 0.12% Oral Kit 15 ML UDC OROPHARYNG SCH ×2 (10:17→20:32)
[2018-02-04] MEDS: Enoxaparin Inj 40 MG/0.4 ML Syringe SQ SCH (10:17)
[2018-02-04] MEDS: amLODIPine 5 MG Tablet PO SCH (10:18)
[2018-02-04] MEDS: Lisinopril 20 MG Tablet PO SCH (10:19)
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
[2018-02-05] MEDS: fentaNYL 10 mcg/mL Premix Drip 2,500 MCG/250 ML BAG IV.SIG PRN (00:41)
[2018-02-05] MEDS: Piperacil/Tazo 4.5 GM Premix 4.5 GM/100 ML BAG IV.SIG SCH ×4 (00:42→18:04)
[2018-02-05] MEDS ORDERED: Pharmacy Ordered Lab Info OTHER ONE (01:45)
[2018-02-05] MEDS: Propofol 1000 mg/100 ml Inj 1,000 MG/100 ML BOTTLE IV.CONT PRN ×2 (02:00→18:46)
[2018-02-05] MEDS: Oral Hygiene Kit OROPHARYNG SCH ×3 (03:16→17:36)
[2018-02-05] MEDS: Vancomycin Inj 1,000 MG in Sodium Chlor 0.9% Inj 250 ML IV.SIG SCH ×2 (03:59→13:54)
[2018-02-05 04:03] LABS: Baso # (Auto) 0.1 th/mm3 (0.0-0.2); Baso % (Auto) 0.4 % (0.0-2.0); Eos # (Auto) 0.2 th/mm3 (0.0-0.4); Eos % (Auto) 1.3 % (0.0-4.0); Hematocrit 23.5 % (35.0-46.0); Hemoglobin 7.5 gm/dL (11.6-15.3); Lymph # (Auto) 1.3 th/mm3 (1.0-4.8); Lymph % (Auto) 6.5 % (9.0-44.0); Mean Corpuscular Hemoglobin 29.6 pg (27.0-34.0); Mean Corpuscular Volume 92.3 fL (80.0-100.0); Mean Platelet Volume 7.2 fL (7.0-11.0); Mono # (Auto) 1.4 th/mm3 (0.0-0.9); Mono % (Auto) 7.2 % (0.0-8.0); Neut # (Auto) 16.6 th/mm3 (1.8-7.7); Neut % (Auto) 84.6 % (16.0-70.0); Platelet Count 460 th/mm3 (150-450); Red Blood Count 2.55 mil/mm3 (4.00-5.30); Red Cell Distribution Width 14.7 % (11.6-17.2); White Blood Count 19.6 th/mm3 (4.0-11.0)
[2018-02-05 04:27] LABS: Albumin 1.3 g/dL (3.4-5.0); Anion Gap 7 meq/L (5-15); Aspartate Aminotransferase 35 U/L (15-37); Blood Urea Nitrogen 22 mg/dL (7-18); Calcium 7.7 mg/dL (8.5-10.1); Carbon Dioxide 27.8 meq/L (21.0-32.0); Chloride 107 meq/L (98-107); Glomerular Filtration Rate 67 mL/min (>89); Glucose,Random 165 mg/dL (74-106); Potassium 4.8 meq/L (3.5-5.1); Sodium 142 meq/L (136-145)
[2018-02-05 04:29] LABS: Alanine Aminotransferase 30 U/L (10-53)
[2018-02-05 04:31] LABS: Alkaline Phosphatase 157 U/L (45-117); Total Protein 5.8 g/dL (6.4-8.2)
--- NOTE | 2018-02-05 04:34 | XR ---
EXAM DATE: 02/05/2018 6:00 AM EDT AGE/SEX: 67 years / Female INDICATIONS: Respiratory distress. CLINICAL DATA: This is the patient's subsequent encounter. Patient reports that signs and symptoms h ave been present for 1 week and indicates a pain score of Nonresponsive. MEDICAL/SURGICAL HISTORY: Hypertension. Smoker. Breast augmentation. Chest tube, left. Centra l line. [place] [facility] [place]. . FINDINGS: The cardiac silhouette is normal in transverse diameter. Support lines and tubes are in satisfactory position. There is left lower lobe atelectasis versus pneumonia. There is patchy alveolar disease maria luisa aterally compatible with edema or pneumonia. A small left sided effusion is present. CONCLUSION: Diffuse edema versus pneumonia. There has been no significant change when compared to the prior exam. Electronically signed by: Adan Calvillo MD 02/05/2018 4:33 AM EDT
[2018-02-05] MEDS: Nystatin Liq 500,000 UNIT/5 ML UDC SWISH-SPIT SCH ×3 (06:32→17:56)
[2018-02-05 06:48] LABS: Eosinophils 1 % (0-4); Lymphocytes 6 % (9-44); Metamyelocytes 3 % (0-1); Monocytes 3 % (0-8); Myelocytes 2 % (0-0)
[2018-02-05 06:49] LABS: Platelet Morphology Normal (Normal); Toxic Granulation 1+
[2018-02-05 08:22] LABS: ABG Base Excess 2.4 mmol/L (-2-2); ABG PCO2 40 mmHg (38-42); ABG PO2 181 mmHg (61-120)
[2018-02-05] MEDS: Famotidine 20 MG Tablet PO SCH ×2 (08:38→20:12)
[2018-02-05] MEDS: Amiodarone 200 MG Tablet PO SCH ×2 (08:38→20:12)
[2018-02-05] MEDS: Enoxaparin Inj 40 MG/0.4 ML Syringe SQ SCH (08:38)
[2018-02-05] MEDS: Sodium Chloride 0.9% 2 ML Flush BID IV.FLUSH SCH ×2 (08:39→20:12)
[2018-02-05] MEDS: Chlorhexidine 0.12% Oral Kit 15 ML UDC OROPHARYNG SCH ×2 (08:39→20:12)
[2018-02-05] MEDS: Senna/Docusate Sodium 8.6/50 MG Tablet PO SCH ×2 (08:39→20:12)
[2018-02-05] MEDS ORDERED: Sodium Chlor 0.9% Inj 250 ML IV.SIG SCH (10:00)
[2018-02-05] MEDS: Lisinopril 20 MG Tablet PO SCH (10:59)
[2018-02-05] MEDS: amLODIPine 5 MG Tablet PO SCH (10:59)
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
[2018-02-05 16:20] LABS: Hematocrit 28.1 % (35.0-46.0); Hemoglobin 9.2 gm/dL (11.6-15.3)
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
[2018-02-06] MEDS: Nystatin Liq 500,000 UNIT/5 ML UDC SWISH-SPIT SCH ×4 (00:20→19:30)
[2018-02-06] MEDS: Piperacil/Tazo 4.5 GM Premix 4.5 GM/100 ML BAG IV.SIG SCH ×4 (02:55→19:31)
[2018-02-06] MEDS: Vancomycin Inj 1,000 MG in Sodium Chlor 0.9% Inj 250 ML IV.SIG SCH ×2 (02:56→17:46)
[2018-02-06] MEDS: Oral Hygiene Kit OROPHARYNG SCH ×4 (04:49→17:46)
[2018-02-06 07:32] LABS: ABG Base Excess 4.4 mmol/L (-2-2); ABG PCO2 36 mmHg (38-42); ABG PO2 62 mmHg (61-120)
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
[2018-02-06 08:45] LABS: Baso # (Auto) 0.1 th/mm3 (0.0-0.2); Baso % (Auto) 0.5 % (0.0-2.0); Eos # (Auto) 0.2 th/mm3 (0.0-0.4); Eos % (Auto) 1.2 % (0.0-4.0); Hemoglobin 7.8 gm/dL (11.6-15.3); Lymph # (Auto) 1.5 th/mm3 (1.0-4.8); Lymph % (Auto) 9.2 % (9.0-44.0); Mean Corpuscular HGB Conc 32.6 % (32.0-36.0); Mean Corpuscular Hemoglobin 29.2 pg (27.0-34.0); Mean Corpuscular Volume 89.7 fL (80.0-100.0); Mono # (Auto) 1.4 th/mm3 (0.0-0.9); Mono % (Auto) 8.6 % (0.0-8.0); Neut # (Auto) 13.2 th/mm3 (1.8-7.7); Neut % (Auto) 80.5 % (16.0-70.0); Platelet Count 529 th/mm3 (150-450); Red Blood Count 2.68 mil/mm3 (4.00-5.30); Red Cell Distribution Width 17.3 % (11.6-17.2); White Blood Count 16.4 th/mm3 (4.0-11.0)
[2018-02-06 09:15] LABS: Carbon Dioxide 26.4 meq/L (21.0-32.0); Potassium 4.3 meq/L (3.5-5.1)
[2018-02-06 09:34] LABS: Eosinophils 1 % (0-4); Lymphocytes 12 % (9-44); Monocytes 5 % (0-8); Myelocytes 2 % (0-0)
[2018-02-06 09:35] LABS: Platelet Morphology Normal (Normal); Toxic Granulation 2+
[2018-02-06] MEDS: Enoxaparin Inj 40 MG/0.4 ML Syringe SQ SCH (10:36)
[2018-02-06] MEDS: Chlorhexidine 0.12% Oral Kit 15 ML UDC OROPHARYNG SCH ×2 (10:36→21:28)
[2018-02-06] MEDS: amLODIPine 5 MG Tablet PO SCH (10:37)
[2018-02-06] MEDS: Famotidine 20 MG Tablet PO SCH ×2 (10:37→21:26)
[2018-02-06] MEDS: Amiodarone 200 MG Tablet PO SCH ×2 (10:37→21:26)
[2018-02-06] MEDS: Lisinopril 20 MG Tablet PO SCH (10:37)
[2018-02-06] MEDS: Sodium Chloride 0.9% 2 ML Flush BID IV.FLUSH SCH ×2 (10:38→21:27)
[2018-02-06] MEDS: Senna/Docusate Sodium 8.6/50 MG Tablet PO SCH ×2 (10:38→21:27)
[2018-02-06] MEDS ORDERED: Pharmacy Ordered Lab Info OTHER ONE (13:45)
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
[2018-02-07] MEDS: Nystatin Liq 500,000 UNIT/5 ML UDC SWISH-SPIT SCH ×5 (00:13→23:29)
[2018-02-07] MEDS: Oral Hygiene Kit OROPHARYNG SCH ×5 (00:13→23:29)
[2018-02-07] MEDS: Piperacil/Tazo 4.5 GM Premix 4.5 GM/100 ML BAG IV.SIG SCH ×4 (00:13→18:06)
[2018-02-07] MEDS ORDERED: Pharmacy Ordered Lab Info OTHER ONE (01:45)
[2018-02-07] MEDS: Vancomycin Inj 1,000 MG in Sodium Chlor 0.9% Inj 250 ML IV.SIG SCH (02:31)
[2018-02-07] MEDS: fentaNYL 10 mcg/mL Premix Drip 2,500 MCG/250 ML BAG IV.SIG PRN (03:27)
--- NOTE | 2018-02-07 06:05 | XR ---
EXAM DATE: 02/07/2018 6:00 AM EDT AGE/SEX: 67 years / Female INDICATIONS: Shortness of breath. CLINICAL DATA: This is the patient's subsequent encounter. Patient reports that signs and symptoms h ave been present for 1 week and indicates a pain score of Nonresponsive. MEDICAL/SURGICAL HISTORY: Hypertension. Breast augmentation. COMPARISON: [facility] – [place], CHEST 1V SINGLE AP, 02/05/2018. . FINDINGS: The cardiac silhouette is enlarged in transverse diameter. Support lines and tubes are in satisfactor y position. There is patchy alveolar disease bilaterally compatible with edema or pneumonia. There is left lower lobe atelectasis versus pneumonia. A small left sided effusion is present. CONCLUSION: Diffuse edema versus pneumonia worse in the left lower lobe. There has been no significant change whe n compared to the prior exam. Electronically signed by: Adan Calvillo MD 02/07/2018 6:03 AM EDT
[2018-02-07 06:08] LABS: ABG Base Excess 4.5 mmol/L (-2-2); ABG PCO2 34 mmHg (38-42); ABG PO2 85 mmHg (61-120)
[2018-02-07 06:08] LABS: Baso # (Auto) 0.1 th/mm3 (0.0-0.2); Baso % (Auto) 0.7 % (0.0-2.0); Eos # (Auto) 0.2 th/mm3 (0.0-0.4); Eos % (Auto) 1.1 % (0.0-4.0); Hematocrit 25.2 % (35.0-46.0); Lymph # (Auto) 2.2 th/mm3 (1.0-4.8); Lymph % (Auto) 12.3 % (9.0-44.0); Mean Corpuscular HGB Conc 31.9 % (32.0-36.0); Mean Corpuscular Hemoglobin 28.8 pg (27.0-34.0); Mean Corpuscular Volume 90.3 fL (80.0-100.0); Mean Platelet Volume 7.9 fL (7.0-11.0); Mono # (Auto) 1.3 th/mm3 (0.0-0.9); Mono % (Auto) 7.3 % (0.0-8.0); Neut # (Auto) 14.2 th/mm3 (1.8-7.7); Neut % (Auto) 78.6 % (16.0-70.0); Platelet Count 588 th/mm3 (150-450); Red Blood Count 2.79 mil/mm3 (4.00-5.30); Red Cell Distribution Width 16.5 % (11.6-17.2); White Blood Count 18.1 th/mm3 (4.0-11.0)
[2018-02-07 06:20] LABS: Carbon Dioxide 26.7 meq/L (21.0-32.0)
[2018-02-07 06:32] LABS: Total Protein 4.9 g/dL (6.4-8.2)
[2018-02-07 07:45] LABS: Lymphocytes 21 % (9-44); Metamyelocytes 2 % (0-1); Monocytes 7 % (0-8); Myelocytes 1 % (0-0)
[2018-02-07 08:06] LABS: Platelet Morphology Normal (Normal); Toxic Granulation 3+
[2018-02-07] MEDS: Enoxaparin Inj 40 MG/0.4 ML Syringe SQ SCH (08:17)
[2018-02-07] MEDS: Lisinopril 20 MG Tablet PO SCH (08:17)
[2018-02-07] MEDS: amLODIPine 5 MG Tablet PO SCH (08:18)
[2018-02-07] MEDS: Senna/Docusate Sodium 8.6/50 MG Tablet PO SCH ×2 (08:18→20:10)
[2018-02-07] MEDS: Famotidine 20 MG Tablet PO SCH ×2 (08:18→20:09)
[2018-02-07] MEDS: Chlorhexidine 0.12% Oral Kit 15 ML UDC OROPHARYNG SCH ×2 (08:18→20:10)
[2018-02-07] MEDS: Amiodarone 200 MG Tablet PO SCH ×2 (08:18→20:09)
[2018-02-07] MEDS: Sodium Chloride 0.9% 2 ML Flush BID IV.FLUSH SCH ×2 (08:18→20:10)
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
[2018-02-07] MEDS: Vancomycin Inj 750 MG in Sodium Chlor 0.9% Inj 250 ML IV.SIG SCH (14:27)
[2018-02-08] MEDS: Piperacil/Tazo 4.5 GM Premix 4.5 GM/100 ML BAG IV.SIG SCH ×4 (00:34→18:30)
[2018-02-08] MEDS: Vancomycin Inj 750 MG in Sodium Chlor 0.9% Inj 250 ML IV.SIG SCH ×2 (01:07→14:51)
[2018-02-08] MEDS: Nystatin Liq 500,000 UNIT/5 ML UDC SWISH-SPIT SCH ×4 (05:17→23:04)
[2018-02-08] MEDS: Oral Hygiene Kit OROPHARYNG SCH ×4 (05:29→23:04)
--- NOTE | 2018-02-08 05:33 | XR ---
EXAM DATE: 02/08/2018 6:00 AM EDT AGE/SEX: 67 years / Female INDICATIONS: Shortness of breath. CLINICAL DATA: This is the patient's subsequent encounter. Patient reports that signs and symptoms h ave been present for 2 weeks and indicates a pain score of Nonresponsive. MEDICAL/SURGICAL HISTORY: . Hypertension. . Breast augmentation. COMPARISON: C, CHEST 1V SINGLE AP, 02/07/2018. . FINDINGS: The cardiac silhouette is normal in transverse diameter. Support lines and tubes are in satisfactory position. There is left lower lobe atelectasis versus pneumonia. The right lung is free of acute pare nchymal opacity. CONCLUSION: Left lower lobe atelectasis versus pneumonia. There has been no significant change when compared to t he prior exam. Electronically signed by: Adan Calvillo MD 02/08/2018 5:31 AM EDT
[2018-02-08 05:56] LABS: Baso # (Auto) 0.1 th/mm3 (0.0-0.2); Baso % (Auto) 0.8 % (0.0-2.0); Eos # (Auto) 0.2 th/mm3 (0.0-0.4); Eos % (Auto) 1.3 % (0.0-4.0); Hemoglobin 8.3 gm/dL (11.6-15.3); Lymph # (Auto) 1.9 th/mm3 (1.0-4.8); Mean Corpuscular HGB Conc 31.8 % (32.0-36.0); Mean Corpuscular Hemoglobin 28.7 pg (27.0-34.0); Mean Corpuscular Volume 90.4 fL (80.0-100.0); Mean Platelet Volume 7.4 fL (7.0-11.0); Mono % (Auto) 7.4 % (0.0-8.0); Neut # (Auto) 10.6 th/mm3 (1.8-7.7); Neut % (Auto) 76.5 % (16.0-70.0); Platelet Count 692 th/mm3 (150-450); Red Blood Count 2.87 mil/mm3 (4.00-5.30); Red Cell Distribution Width 16.4 % (11.6-17.2); White Blood Count 13.8 th/mm3 (4.0-11.0)
[2018-02-08 06:25] LABS: Alanine Aminotransferase 50 U/L (10-53); Albumin 1.5 g/dL (3.4-5.0); Anion Gap 8 meq/L (5-15); Aspartate Aminotransferase 31 U/L (15-37); Blood Urea Nitrogen 27 mg/dL (7-18); Calcium 7.9 mg/dL (8.5-10.1); Carbon Dioxide 27.8 meq/L (21.0-32.0); Chloride 103 meq/L (98-107); Glomerular Filtration Rate 73 mL/min (>89); Glucose,Random 142 mg/dL (74-106); Sodium 139 meq/L (136-145)
[2018-02-08 06:27] LABS: ABG Base Excess 4.8 mmol/L (-2-2); ABG PCO2 37 mmHg (38-42); ABG PO2 89 mmHg (61-120)
[2018-02-08 06:30] LABS: Alkaline Phosphatase 177 U/L (45-117)
[2018-02-08] MEDS: Enoxaparin Inj 40 MG/0.4 ML Syringe SQ SCH (08:05)
[2018-02-08] MEDS: Famotidine 20 MG Tablet PO SCH ×2 (08:05→20:13)
[2018-02-08] MEDS: Amiodarone 200 MG Tablet PO SCH ×2 (08:05→20:13)
[2018-02-08] MEDS: amLODIPine 5 MG Tablet PO SCH (08:05)
[2018-02-08] MEDS: Lisinopril 20 MG Tablet PO SCH (08:05)
[2018-02-08] MEDS: Chlorhexidine 0.12% Oral Kit 15 ML UDC OROPHARYNG SCH ×2 (08:06→20:13)
[2018-02-08] MEDS: Senna/Docusate Sodium 8.6/50 MG Tablet PO SCH ×2 (08:06→20:13)
[2018-02-08] MEDS: Sodium Chloride 0.9% 2 ML Flush BID IV.FLUSH SCH ×2 (08:06→20:13)
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
[2018-02-08] MEDS ORDERED: Potassium Chloride 25 MEQ Effervescent Tablet PO ONE (10:30)
[2018-02-08] MEDS ORDERED: Dexmedetomidine Inj 200 MCG in Sodium Chlor 0.9% Inj 48 ML IV.CONT PRN (10:37)
[2018-02-08] MEDS ORDERED: acetaZOLAMIDE Inj 250 MG in Sodium Chlor 0.9% Inj 50 ML IV.SIG ONE (11:00)
[2018-02-08] MEDS ORDERED: RASS Change Order OTHER ONE (11:37)
[2018-02-08] MEDS ORDERED: Pharmacy Ordered Lab Info OTHER ONE (13:45)
[2018-02-08] MEDS: fentaNYL 10 mcg/mL Premix Drip 2,500 MCG/250 ML BAG IV.SIG PRN (17:41)
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
--- NOTE | 2018-02-08 17:50 | XR ---
EXAM DATE: 02/08/2018 12:00 AM EDT AGE/SEX: 67 years / Female INDICATIONS: Evaluate et tube placement. CLINICAL DATA: This is the patient's subsequent encounter. Patient reports that signs and symptoms h ave been present for 4 - 6 days and indicates a pain score of Nonresponsive. MEDICAL/SURGICAL HISTORY: . Hypertension. . Breast augmentation. COMPARISON: [facility] – [place], CHEST 1V SINGLE AP, 02/08/2018. . FINDINGS: There is complete opacification of the left hemithorax identified. Endotracheal tube is noted in the distal tip extends to the right mainstem bronchus. There is linear atelectasis or scarring in the rig ht mid lung, otherwise normal aeration of the right lung. Enteric tube courses beneath the diaphragm. EKG leads overlie the chest. Displaced left midclavicular fracture deformity identified. CONCLUSION: Right mainstem intubation with complete opacification of the left hemithorax. Electronically signed by: Adelfo Armendariz MD 02/08/2018 5:49 PM EDT
--- NOTE | 2018-02-08 18:12 | MP ---
cc: Estela Lal MD DATE OF OPERATION: 02/08/2018 PREOPERATIVE DIAGNOSES: Status post extubation stridor, laryngeal edema. POSTOPERATIVE DIAGNOSES: Status post extubation stridor, laryngeal edema. OPERATIVE PROCEDURE: Reintubation. SURGEON: Estela Lal MD ANESTHESIA: 50 mcg of propofol and 50 of rocuronium. DESCRIPTION OF PROCEDURE: The patient was positioned and hyperventilated at 99% FiO2 saturation and then a GlideScope was introduced into the pharynx. The laryngeal tissue was readily noted. The vocal cords appear to be slightly swollen; however, tissue of the larynx including the epiglottis was extremely swollen and red and it is clear why the edema prevented the patient from breathing adequately. An 8 mm endotracheal tube was placed without difficulty. Patient connected to the ventilator and tidal CO2 checked and breaths are checked. The patient tolerated the procedure well. MD AQUILES Card/chalino , 05:51 PM , 05:56 PM
[2018-02-08] MEDS: Propofol 1000 mg/100 ml Inj 1,000 MG/100 ML BOTTLE IV.CONT PRN (18:43)
--- NOTE | 2018-02-08 19:02 | XR ---
EXAM DATE: 02/08/2018 12:00 AM EDT AGE/SEX: 67 years / Female INDICATIONS: Evaluate atelectasis. CLINICAL DATA: This is the patient's subsequent encounter. Patient reports that signs and symptoms h ave been present for 4 - 6 days and indicates a pain score of Nonresponsive. MEDICAL/SURGICAL HISTORY: Non-responsive. Non-responsive. COMPARISON: [facility] [place] 1V SINGLE AP, 02/08/2018. [facility] [place]ST 1V SINGLE AP, 02/08/2018. . FINDINGS: Near complete consolidation with associated volume loss again seen on the left. Endotracheal tube tip is at or slightly below the emre and needs to be pulled back a couple more centimeters. A left ple ural effusion may be present as well. Mild, mostly peripheral consolidation on the right not signific antly changed. I don't see a pneumothorax on either side. CONCLUSION: Persistent right mainstem bronchus intubation with collapsed left lung. Electronically signed by: Martinez Silva MD 02/08/2018 7:01 PM EDT
[2018-02-09] MEDS: Propofol 1000 mg/100 ml Inj 1,000 MG/100 ML BOTTLE IV.CONT PRN ×3 (00:15→18:26)
[2018-02-09] MEDS: Piperacil/Tazo 4.5 GM Premix 4.5 GM/100 ML BAG IV.SIG SCH ×4 (00:21→18:24)
[2018-02-09] MEDS: Vancomycin Inj 750 MG in Sodium Chlor 0.9% Inj 250 ML IV.SIG SCH (01:51)
[2018-02-09 02:39] LABS: ABG Base Excess -2.1 mmol/L (-2-2); ABG PCO2 40 mmHg (38-42); ABG PO2 92 mmHg (61-120)
[2018-02-09 03:41] LABS: Baso # (Auto) 0.1 th/mm3 (0.0-0.2); Baso % (Auto) 0.5 % (0.0-2.0); Eos # (Auto) 0.2 th/mm3 (0.0-0.4); Eos % (Auto) 1.1 % (0.0-4.0); Hematocrit 32.4 % (35.0-46.0); Hemoglobin 10.1 gm/dL (11.6-15.3); Lymph # (Auto) 2.1 th/mm3 (1.0-4.8); Lymph % (Auto) 10.3 % (9.0-44.0); Mean Corpuscular HGB Conc 31.2 % (32.0-36.0); Mean Corpuscular Hemoglobin 29.8 pg (27.0-34.0); Mean Corpuscular Volume 95.6 fL (80.0-100.0); Mean Platelet Volume 7.8 fL (7.0-11.0); Mono # (Auto) 1.3 th/mm3 (0.0-0.9); Mono % (Auto) 6.3 % (0.0-8.0); Neut # (Auto) 16.9 th/mm3 (1.8-7.7); Neut % (Auto) 81.8 % (16.0-70.0); Platelet Count 359 th/mm3 (150-450); Red Blood Count 3.39 mil/mm3 (4.00-5.30); White Blood Count 20.6 th/mm3 (4.0-11.0)
[2018-02-09 03:51] LABS: Albumin 1.6 g/dL (3.4-5.0); Calcium 7.4 mg/dL (8.5-10.1); Carbon Dioxide 21.9 meq/L (21.0-32.0); Potassium 4.4 meq/L (3.5-5.1)
--- NOTE | 2018-02-09 03:52 | XR ---
EXAM DATE: 02/09/2018 6:00 AM EDT AGE/SEX: 67 years / Female INDICATIONS: Respiratory distress. CLINICAL DATA: This is the patient's subsequent encounter. Patient reports that signs and symptoms h ave been present for 2 weeks and indicates a pain score of Nonresponsive. MEDICAL/SURGICAL HISTORY: Hypertension. Breast augmentation. COMPARISON: [facility] [place] 1V SINGLE AP, 02/08/2018. . FINDINGS: The ET tube tip is within 1 cm from the emre. This is an improvement from the prior exam of the tip is in the right mainstem bronchus. It still in the low position. There is an NG tube in place with i ts tip directed into the stomach. There is near total opacification of the left lung. There now is so me aeration in the left upper lung. There is some patchy density seen at the right base. There is a l eft mid clavicle fracture and left rib fractures. CONCLUSION: ET tube in the distal trachea within 1 cm the emre. This is in a low position it still could be pul led back 2 cm. Near total collapse the left lung. There is some aeration seen in left upper lung. Some degree of lef t pleural effusion should be considered. Electronically signed by: Martinez Caraballo MD 02/09/2018 3:51 AM EDT
[2018-02-09] MEDS: Oral Hygiene Kit OROPHARYNG SCH ×4 (03:56→23:41)
[2018-02-09] MEDS: Nystatin Liq 500,000 UNIT/5 ML UDC SWISH-SPIT SCH ×4 (05:46→23:44)
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
[2018-02-09] MEDS: Chlorhexidine 0.12% Oral Kit 15 ML UDC OROPHARYNG SCH ×2 (09:48→22:33)
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
[2018-02-09] MEDS: MethylPREDNISolone Sod Succinate Inj 40 MG/ML Vial IV.PUSH SCH ×2 (11:08→23:40)
[2018-02-09] MEDS: Famotidine 20 MG Tablet PO SCH ×2 (11:08→23:40)
[2018-02-09] MEDS: Lisinopril 20 MG Tablet PO SCH (11:08)
--- NOTE | 2018-02-09 11:08 | XR ---
EXAM DATE: 02/09/2018 10:12 AM EDT AGE/SEX: 67 years / Female INDICATIONS: S/P bronch. CLINICAL DATA: This is the patient's initial encounter. Patient reports that signs and symptoms have been present for 1 day and indicates a pain score of Nonresponsive. MEDICAL/SURGICAL HISTORY: . Hypertension. Breast augmentation. None. COMPARISON: C, CHEST 1V SINGLE AP, 02/09/2018. . FINDINGS: Endotracheal tube is been backed off and is now appropriately positioned above the emre at 3.3 cm. Again, there is near total opacification of the left hemithorax with minimal aeration in the left per ihilar distribution. There is levo position of the heart and mediastinal structures. Some patchy airs pace disease is seen superior laterally in the right hemithorax, unchanged. The right chest is otherw ise relatively clear. Nasogastric tube enters the stomach and extends off the inferior aspect of the film. Comminuted fract ure of the left mid clavicle with multiple left-sided rib fractures laterally. CONCLUSION: 1. Repositioning of the endotracheal tube which is now 3.3 cm above the emre. 2. Stable opacification of the left hemithorax with some minimal aeration in the left midlung. 3. Stable patchy pleural-parenchymal disease at the junction of the upper and mid lung laterally on the right. 4. Needle position of the heart and mediastinal structures due to the volume loss in the left chest. 5. Comminuted fracture through the mid clavicular diaphysis with multiple left-sided rib fractures. No pneumothorax. Electronically signed by: Sergio Sloan MD 02/09/2018 11:07 AM EDT
[2018-02-09] MEDS: amLODIPine 5 MG Tablet PO SCH (11:09)
[2018-02-09] MEDS: Amiodarone 200 MG Tablet PO SCH ×2 (11:09→21:59)
--- NOTE | 2018-02-09 11:09 | XR ---
EXAM DATE: 02/09/2018 12:00 AM EDT AGE/SEX: 67 years / Female INDICATIONS: S/P bronch. CLINICAL DATA: This is the patient's subsequent encounter. Patient reports that signs and symptoms h ave been present for 1 day and indicates a pain score of Nonresponsive. MEDICAL/SURGICAL HISTORY: . Hypertension. Breast augmentation. None. COMPARISON: C, CHEST 1V SINGLE AP, 02/09/2018. . FINDINGS: Endotracheal tube and nasogastric tube are present in good position. There is been slight improvement in aeration with clearance of left upper lung opacity. There is persistent consolidation and effusio n at the left base. Mild hazy parenchymal opacity on the contralateral right side is unchanged. Visua lized cardiac contours are satisfactory. CONCLUSION: Some interval improvement in aeration. Electronically signed by: Martinez Desai MD 02/09/2018 11:07 AM EDT
[2018-02-09] MEDS: Senna/Docusate Sodium 8.6/50 MG Tablet PO SCH ×2 (11:10→23:40)
[2018-02-09] MEDS: Sodium Chloride 0.9% 2 ML Flush BID IV.FLUSH SCH ×2 (11:10→22:33)
[2018-02-09] MEDS: Enoxaparin Inj 40 MG/0.4 ML Syringe SQ SCH (11:11)
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
[2018-02-09 13:54] LABS: ABG Base Excess -1.9 mmol/L (-2-2); ABG PCO2 39 mmHg (38-42); ABG PO2 61 mmHg (61-120)
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
[2018-02-09] MEDS ORDERED: Lidocaine 1%/Epinephrine 1:100,000 Inj 50 ML Vial ONE (15:37)
[2018-02-09] MEDS: Vancomycin Inj 1,250 MG in Sodium Chlor 0.9% Inj 250 ML IV.SIG SCH (15:40)
--- NOTE | 2018-02-09 16:24 | P.RAD ---
Post CT Procedure Prog Note - Pre Procedure Diagnosis (1) Recurrent left pleural effusion - Post Procedure Diagnosis (1) Recurrent left pleural effusion - Procedure Information Procedure Date: 02/09/18 Supervising Radiologist: Italo Fallon Jr, MD Proceduralist/Assist: Glenna Estimated blood loss (mL): 0 Anesthesia: Local - Plan of Activity Patient to Unit: Critical Care Patient condition: Fair See PACS Report for procedural detail/treatment. Drainage Procedure CT left Chest Tube Non-Tunneled Placement Drainage: Pleurovac Fluid Removal (CCs): 400 Fluid Description: Clear Findings: Loculated left effusion. Chose the largest locule to drain with chest tube.
--- NOTE | 2018-02-09 16:33 | CT ---
EXAM DATE: 02/09/2018 3:34 PM EDT AGE/SEX: 67 years / Female INDICATIONS: Recurrent left pleural effusion. Left chest tube requested. CLINICAL DATA: This is the patient's initial encounter. Patient reports that signs and symptoms have been present for 1 day and indicates a pain score of Nonresponsive. MEDICAL/SURGICAL HISTORY: Non-responsive. Non-responsive. DEVICE(S): 10 Fr Pratima . . COMPARISON: [facility] – [place], [place] CHEST W/O CONTRAST, 02/09/2018. . PROCEDURE : CT guided left chest tube placement. The risks, benefits and alternatives to the procedure were explained and verbal and written consent w as obtained. The site was prepped in sterile fashion. Full sterile technique was used, including ca p, mask, sterile gloves and gown and a large sterile sheet. Hand hygiene and 2% chlorhexidine and/or betadine/alcohol prep was utilized per protocol for cutaneous antisepsis. The skin and subcutaneous tissues were infiltrated with local anesthetic solution. Using automated exposure control and adjus tment of the mA and/or kV according to patient size, radiation dose was kept as low as reasonably ach ievable to obtain optimal diagnostic quality images. DICOM format image data is available electronic ally for review and comparison. With CT guidance the chest was punctured and the prescribed catheter was placed in the largest locule in this loculated left pleural effusion. This resides within the left base. Clear straw-colored flu id was obtained. Wall suction was applied. Post procedure images demonstrate satisfactory position o f the tube. The catheter was sutured in place and a Percu-Stay was applied. The patient tolerated the procedure well and there were no complications. The patient was sent to pos t anesthesia recovery in stable condition. CONCLUSION: 1. Uncomplicated left chest tube placement as above. 400 mL of straw-colored fluid obtained. Electronically signed by: Italo Fallon MD 02/09/2018 4:32 PM EDT
--- NOTE | 2018-02-09 16:39 | MP ---
cc: Estela Lal MD DATE OF OPERATION: 02/09/2018 PREOPERATIVE DIAGNOSIS: Collapse of the left lung with white-out of the left lung. POSTOPERATIVE DIAGNOSES: 1. Collapse of the left lung with white-out of the left lung. 2. Tenuous thick secretions of the left lung. OPERATIVE PROCEDURE: Bronchoscopy through the orotracheal tube. SURGEON: Kaylene Lal MD. ANESTHESIA: Propofol and rocuronium. ESTIMATED BLOOD LOSS: None. INDICATIONS FOR PROCEDURE: This patient underwent extubation and reintubation and then white-out of the left lung with clearly inspissated secretions. The patient was prepared in the usual fashion. Bronchoscope was introduced into the respiratory tree, advanced first into the right lung. Right lung is relatively clean. There is some debris and some secretions, which were removed. Distal trachea; however, contains a large amount of thick inspissated secretions, which was like glue stuck to the tracheal wall. These were very carefully suctioned off and pulled out in large chunks. Now, the left mainstem bronchus was entered and then second and third generation aberrations are entered with the left upper and lower lobe with copious amounts of thick tenuous secretions that mobilized as much as possible and were removed. A chest x-ray was obtained and then more secretions were removed while the second chest x-ray is pending. Finally, final chest x-ray reveals reexpansion of the left lung with lucent areas and great improvement. Bronchoscope was withdrawn. The patient tolerated the procedure well. Cultures were obtained. It should be noted that the patient was then taken to the CAT scan, which reveals an opening of the left lung; however, several loculated areas around the lung, which will be addressed separately. MD AQUILES Card/adams/deborah , 02:02 PM , 02:12 PM
[2018-02-09] MEDS: fentaNYL 10 mcg/mL Premix Drip 2,500 MCG/250 ML BAG IV.SIG PRN (18:25)
[2018-02-10] MEDS: Piperacil/Tazo 4.5 GM Premix 4.5 GM/100 ML BAG IV.SIG SCH ×4 (00:57→20:10)
[2018-02-10] MEDS: Oral Hygiene Kit OROPHARYNG SCH ×3 (04:39→17:59)
[2018-02-10] MEDS: Propofol 1000 mg/100 ml Inj 1,000 MG/100 ML BOTTLE IV.CONT PRN ×2 (04:44→15:40)
[2018-02-10 05:08] LABS: Baso # (Auto) 0.1 th/mm3 (0.0-0.2); Baso % (Auto) 0.5 % (0.0-2.0); Hematocrit 26.8 % (35.0-46.0); Hemoglobin 8.8 gm/dL (11.6-15.3); Lymph # (Auto) 0.6 th/mm3 (1.0-4.8); Mean Corpuscular HGB Conc 32.8 % (32.0-36.0); Mean Corpuscular Hemoglobin 29.4 pg (27.0-34.0); Mean Corpuscular Volume 89.6 fL (80.0-100.0); Mean Platelet Volume 7.1 fL (7.0-11.0); Mono # (Auto) 0.5 th/mm3 (0.0-0.9); Mono % (Auto) 2.9 % (0.0-8.0); Neut # (Auto) 14.9 th/mm3 (1.8-7.7); Neut % (Auto) 92.6 % (16.0-70.0); Platelet Count 920 th/mm3 (150-450); Red Blood Count 2.99 mil/mm3 (4.00-5.30); Red Cell Distribution Width 16.5 % (11.6-17.2); White Blood Count 16.1 th/mm3 (4.0-11.0)
[2018-02-10 05:32] LABS: Albumin 1.7 g/dL (3.4-5.0); Anion Gap 10 meq/L (5-15); Aspartate Aminotransferase 35 U/L (15-37); Blood Urea Nitrogen 33 mg/dL (7-18); Calcium 7.6 mg/dL (8.5-10.1); Chloride 104 meq/L (98-107); Glomerular Filtration Rate 49 mL/min (>89); Glucose,Random 163 mg/dL (74-106); Potassium 4.5 meq/L (3.5-5.1); Sodium 137 meq/L (136-145)
[2018-02-10 05:33] LABS: Alanine Aminotransferase 60 U/L (10-53)
[2018-02-10 05:35] LABS: Alkaline Phosphatase 176 U/L (45-117); Total Protein 6.5 g/dL (6.4-8.2)
--- NOTE | 2018-02-10 05:48 | XR ---
EXAM DATE: 02/10/2018 6:00 AM EDT AGE/SEX: 67 years / Female INDICATIONS: Respiratory disease. CLINICAL DATA: This is the patient's subsequent encounter. Patient reports that signs and symptoms h ave been present for 2 weeks and indicates a pain score of Nonresponsive. MEDICAL/SURGICAL HISTORY: Hypertension. Smoker. Breast augmentation. Chest tube, left. [place] [facility] [place]. . FINDINGS: A single AP view of the chest demonstrates minimal patchy densities in the right upper lobe and left lower lobe. Blunting the left costophrenic angle. Endotracheal tube and nasogastric tube unchanged. L eft-sided chest tube stable.. Osseous structures are intact. CONCLUSION: 1. Minimal patchy densities right upper lobe and left lower lobe. 2. Left-sided chest tube without pneumothorax Electronically signed by: Manan Cabral MD 02/10/2018 5:46 AM EDT
[2018-02-10] MEDS: Nystatin Liq 500,000 UNIT/5 ML UDC SWISH-SPIT SCH ×2 (06:27→12:12)
[2018-02-10 06:54] LABS: ABG Base Excess -2.8 mmol/L (-2-2); ABG PCO2 37 mmHg (38-42); ABG PO2 204 mmHg (61-120)
[2018-02-10] MEDS: Amiodarone 200 MG Tablet PO SCH ×2 (09:23→20:12)
[2018-02-10] MEDS: MethylPREDNISolone Sod Succinate Inj 40 MG/ML Vial IV.PUSH SCH ×2 (09:23→20:10)
[2018-02-10] MEDS: Famotidine 20 MG Tablet PO SCH ×2 (09:23→20:11)
[2018-02-10 09:24] LABS: Eosinophils 2 % (0-4); Lymphocytes 4 % (9-44); Monocytes 3 % (0-8); Myelocytes 1 % (0-0)
[2018-02-10] MEDS: Enoxaparin Inj 40 MG/0.4 ML Syringe SQ SCH (09:24)
[2018-02-10] MEDS: Vancomycin Inj 1,250 MG in Sodium Chlor 0.9% Inj 250 ML IV.SIG SCH (09:24)
[2018-02-10] MEDS: Chlorhexidine 0.12% Oral Kit 15 ML UDC OROPHARYNG SCH ×2 (09:24→20:12)
[2018-02-10 09:25] LABS: Path Slide Review N; Toxic Granulation 2+
[2018-02-10] MEDS: amLODIPine 5 MG Tablet PO SCH (09:25)
[2018-02-10] MEDS: Lisinopril 20 MG Tablet PO SCH (09:25)
[2018-02-10] MEDS: Sodium Chloride 0.9% 2 ML Flush BID IV.FLUSH SCH ×2 (09:42→21:19)
[2018-02-10] MEDS: Senna/Docusate Sodium 8.6/50 MG Tablet PO SCH ×2 (09:42→20:12)
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
[2018-02-10] MEDS: fentaNYL 10 mcg/mL Premix Drip 2,500 MCG/250 ML BAG IV.SIG PRN (20:09)
[2018-02-10] MEDS: Enoxaparin Inj 30 MG/0.3 ML Syringe SQ SCH (20:11)
[2018-02-11] MEDS: Piperacil/Tazo 4.5 GM Premix 4.5 GM/100 ML BAG IV.SIG SCH ×4 (00:29→18:05)
[2018-02-11] MEDS: Oral Hygiene Kit OROPHARYNG SCH ×4 (00:30→17:13)
[2018-02-11] MEDS ORDERED: Pharmacy Ordered Lab Info OTHER ONE (02:45)
[2018-02-11] MEDS: Vancomycin Inj 1,250 MG in Sodium Chlor 0.9% Inj 250 ML IV.SIG SCH (03:55)
[2018-02-11 04:07] LABS: Baso # (Auto) 0.1 th/mm3 (0.0-0.2); Baso % (Auto) 0.5 % (0.0-2.0); Hematocrit 29.9 % (35.0-46.0); Hemoglobin 9.5 gm/dL (11.6-15.3); Lymph # (Auto) 0.6 th/mm3 (1.0-4.8); Mean Corpuscular HGB Conc 31.7 % (32.0-36.0); Mean Corpuscular Hemoglobin 29.3 pg (27.0-34.0); Mean Corpuscular Volume 92.4 fL (80.0-100.0); Mono # (Auto) 0.5 th/mm3 (0.0-0.9); Mono % (Auto) 4.3 % (0.0-8.0); Neut # (Auto) 10.4 th/mm3 (1.8-7.7); Neut % (Auto) 90.2 % (16.0-70.0); Platelet Count 1091 th/mm3 (150-450); Red Blood Count 3.23 mil/mm3 (4.00-5.30); Red Cell Distribution Width 16.3 % (11.6-17.2); White Blood Count 11.6 th/mm3 (4.0-11.0)
[2018-02-11 04:33] LABS: Albumin 1.9 g/dL (3.4-5.0); Anion Gap 8 meq/L (5-15); Aspartate Aminotransferase 53 U/L (15-37); Blood Urea Nitrogen 32 mg/dL (7-18); Calcium 7.6 mg/dL (8.5-10.1); Carbon Dioxide 24.5 meq/L (21.0-32.0); Chloride 105 meq/L (98-107); Glomerular Filtration Rate 58 mL/min (>89); Glucose,Random 154 mg/dL (74-106); Potassium 4.5 meq/L (3.5-5.1); Sodium 137 meq/L (136-145)
[2018-02-11 04:34] LABS: Alanine Aminotransferase 79 U/L (10-53)
[2018-02-11 04:36] LABS: Alkaline Phosphatase 188 U/L (45-117); Total Protein 6.8 g/dL (6.4-8.2)
[2018-02-11 05:54] LABS: ABG Base Excess -1.9 mmol/L (-2-2); ABG PCO2 37 mmHg (38-42); ABG PO2 169 mmHg (61-120)
--- NOTE | 2018-02-11 07:19 | XR ---
EXAM DATE: 02/11/2018 6:00 AM EDT AGE/SEX: 67 years / Female INDICATIONS: Shortness of breath. CLINICAL DATA: This is the patient's subsequent encounter. Patient reports that signs and symptoms h ave been present for 2 weeks and indicates a pain score of Nonresponsive. MEDICAL/SURGICAL HISTORY: . Hypertension. Smoker. . Breast augmentation. Chest tube, left. COMPARISON: [facility] – [place], CHEST 1V SINGLE AP, 02/10/2018. . FINDINGS: A single AP portable semierect view of the chest was obtained. This again demonstrates the endotrache al tube in place with the tip 4 cm above the emre. A nasogastric tube is seen coursing through the esophagus and into the stomach. The left-sided chest tube remains in place and there is no visualized pneumothorax. The heart size is within normal limits. There is stable blunting of left costophrenic angle. Mild streaky opacity remains at the left lung base. There is mild hazy opacity again noted at the right lung base with no new infiltrates. CONCLUSION: No significant change. Electronically signed by: Yariel Burr MD 02/11/2018 7:18 AM EDT
[2018-02-11] MEDS: MethylPREDNISolone Sod Succinate Inj 40 MG/ML Vial IV.PUSH SCH (08:49)
[2018-02-11] MEDS: Enoxaparin Inj 30 MG/0.3 ML Syringe SQ SCH ×2 (08:49→21:18)
[2018-02-11] MEDS: Amiodarone 200 MG Tablet PO SCH ×2 (08:49→21:18)
[2018-02-11] MEDS: Famotidine 20 MG Tablet PO SCH ×2 (08:50→21:18)
[2018-02-11] MEDS: Chlorhexidine 0.12% Oral Kit 15 ML UDC OROPHARYNG SCH ×2 (09:24→20:00)
[2018-02-11] MEDS: Senna/Docusate Sodium 8.6/50 MG Tablet PO SCH ×2 (09:25→21:19)
[2018-02-11] MEDS: Sodium Chloride 0.9% 2 ML Flush BID IV.FLUSH SCH ×2 (09:25→21:18)
[2018-02-11] MEDS: amLODIPine 5 MG Tablet PO SCH (09:58)
[2018-02-11] MEDS: Lisinopril 20 MG Tablet PO SCH (09:58)
[2018-02-11] MEDS: Propofol 1000 mg/100 ml Inj 1,000 MG/100 ML BOTTLE IV.CONT PRN (11:30)
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
[2018-02-12] MEDS: Piperacil/Tazo 4.5 GM Premix 4.5 GM/100 ML BAG IV.SIG SCH ×4 (00:20→18:30)
[2018-02-12] MEDS: Oral Hygiene Kit OROPHARYNG SCH ×5 (00:20→23:33)
[2018-02-12] MEDS: Propofol 1000 mg/100 ml Inj 1,000 MG/100 ML BOTTLE IV.CONT PRN ×2 (02:19→12:18)
[2018-02-12] MEDS: fentaNYL 10 mcg/mL Premix Drip 2,500 MCG/250 ML BAG IV.SIG PRN ×2 (02:20→23:32)
[2018-02-12 04:05] LABS: Baso # (Auto) 0.1 th/mm3 (0.0-0.2); Baso % (Auto) 0.6 % (0.0-2.0); Eos % (Auto) 0.2 % (0.0-4.0); Hematocrit 27.9 % (35.0-46.0); Hemoglobin 9.1 gm/dL (11.6-15.3); Lymph # (Auto) 1.5 th/mm3 (1.0-4.8); Lymph % (Auto) 12.6 % (9.0-44.0); Mean Corpuscular HGB Conc 32.7 % (32.0-36.0); Mean Corpuscular Hemoglobin 29.7 pg (27.0-34.0); Mean Platelet Volume 6.8 fL (7.0-11.0); Mono # (Auto) 1.4 th/mm3 (0.0-0.9); Neut # (Auto) 8.6 th/mm3 (1.8-7.7); Neut % (Auto) 74.6 % (16.0-70.0); Platelet Count 1153 th/mm3 (150-450); Red Blood Count 3.07 mil/mm3 (4.00-5.30); Red Cell Distribution Width 16.4 % (11.6-17.2); White Blood Count 11.6 th/mm3 (4.0-11.0)
[2018-02-12 04:35] LABS: Albumin 1.9 g/dL (3.4-5.0); Anion Gap 9 meq/L (5-15); Aspartate Aminotransferase 29 U/L (15-37); Blood Urea Nitrogen 30 mg/dL (7-18); Carbon Dioxide 23.3 meq/L (21.0-32.0); Chloride 106 meq/L (98-107); Glomerular Filtration Rate 68 mL/min (>89); Glucose,Random 104 mg/dL (74-106); Potassium 4.3 meq/L (3.5-5.1); Sodium 138 meq/L (136-145)
[2018-02-12 04:39] LABS: Alanine Aminotransferase 73 U/L (10-53); Alkaline Phosphatase 185 U/L (45-117); Total Protein 6.3 g/dL (6.4-8.2)
--- NOTE | 2018-02-12 06:12 | XR ---
EXAM DATE: 02/12/2018 6:00 AM EDT AGE/SEX: 67 years / Female INDICATIONS: Respiratory failure. CLINICAL DATA: This is the patient's subsequent encounter. Patient reports that signs and symptoms h ave been present for 2 weeks and indicates a pain score of Nonresponsive. MEDICAL/SURGICAL HISTORY: Hypertension. Smoker. Breast augmentation. Chest tube, left. [place] [facility]. . FINDINGS: ET tube is well placed. There appears to be an NG tube with tip seen in the upper chest just below th e thoracic inlet. There is patchy increased density at the left base laterally. There is some bluntin g of left costophrenic angle. The right lung is clear. There is a left clavicle fracture. CONCLUSION: NG tube with tip in the upper chest. Patchy consolidation/contusion or atelectasis in the left lateral base. Mild left pleural disease/effusion. Electronically signed by: Martinez Caraballo MD 02/12/2018 6:11 AM EDT
[2018-02-12 06:16] LABS: ABG Base Excess -1.3 mmol/L (-2-2); ABG PCO2 38 mmHg (38-42); ABG PO2 111 mmHg (61-120)
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
[2018-02-12] MEDS: Amiodarone 200 MG Tablet PO SCH ×2 (08:49→20:29)
[2018-02-12] MEDS: Lisinopril 20 MG Tablet PO SCH (08:49)
[2018-02-12] MEDS: Chlorhexidine 0.12% Oral Kit 15 ML UDC OROPHARYNG SCH ×2 (08:49→20:30)
[2018-02-12] MEDS: Enoxaparin Inj 30 MG/0.3 ML Syringe SQ SCH ×2 (08:49→20:30)
[2018-02-12] MEDS: amLODIPine 5 MG Tablet PO SCH (08:49)
[2018-02-12] MEDS: Famotidine 20 MG Tablet PO SCH ×2 (08:49→20:29)
[2018-02-12] MEDS: Sodium Chloride 0.9% 2 ML Flush BID IV.FLUSH SCH ×2 (08:50→20:29)
[2018-02-12] MEDS: Senna/Docusate Sodium 8.6/50 MG Tablet PO SCH ×2 (08:51→20:30)
[2018-02-12] MEDS: Potassium Chloride 25 MEQ Effervescent Tablet PO PRN (08:51)
[2018-02-12] MEDS ORDERED: Midazolam Inj 5 MG/ML 1 ML Vial ONE (15:29)
[2018-02-12] MEDS ORDERED: Midazolam Inj 5 MG/ML 1 ML Vial IV.PUSH ONE (15:30)
--- NOTE | 2018-02-12 16:25 | P.DIET ---
Nutritional Evaluation Type of nutrition evaluation: follow-up Nutrition consult regarding: Tube Feeding Subjective Subjective Comments: CARE HOME/passenger Objective - Diagnosis Pneumohemi thorax, multiple rib fxs - Objective % IBW: 115 (IBW = 115#) Body Weight Used for Calculations: Actual (60.3 kg (admission wt)) Energy Needs - Lower Range (kCal/kg): 25 Energy Needs - Upper Range (kCal/kg): 30 Lower Limit kCal/kg (kCals): 1,508 Upper Limit kCal/kg (kCals): 1,809 Lower Limit Protein Factor (Grams per Kg): 1.0 Upper Limit Protein Factor (Grams per Kg): 1.5 Lower Protein Needs (Protein): 60 Upper Protein Needs (Protein): 90 Dietitian Reviewed in Medical Record: Curent medications, Intake & Output, Labs , Medical history, Tube feeding Diet Order: NPO Assessment Assessment: Pt remains at high nutrition risk 2' to trauma and the need for TFing. Currently TF on hold for procedure. Pt had been tolerating Jevity 1.5 @ 50 mls/ hr goal. This provides 1800 kcals, 77 gms protein and 912 mls of free water. Some additional kcals will be provided by propofol (1.1 kcal/ml). Labs, wts and clinical course reviewed. CBW = 79.2 which indicates wt gain. Recommendations: Jevity 1.5 @ 50 mls/hr goal OR Glucerna 1.5 @ 50 mls/hr for better glucose control Dietitian to Monitor: Lab values, Intake & Output, Tube feeding tolerance, Weight change, Medical course
--- NOTE | 2018-02-12 16:45 | P.PCN ---
Procedure: Diagnosis: Hypoxemic respiratory failure, flail chest pulmonary contusion Procedure: Therapeutic fiberoptic bronchoscopy Narrative: Timeout performed and patient suitably identified. Patient presently oral tracheal intubation on mechanical ventilation with the usual ICU monitoring devices in place. Through a side-port in the ventilatory circuit the bronchoscope was delivered into the tracheobronchial tree. There were large amounts of layered thick white secretions line in the main trachea and the proximal main bronchial segments. The individual pieces were too large to bring out through the bronchoscope and it was elected to suction them with a larger catheter after the procedure. The endotracheal tube and bronchoscope were then pulled back to the level of the cricoid cartilage and used for visualization for a percutaneous tracheostomy performed by another team. Following the percutaneous tracheostomy the bronchoscope was delivered through the new trach tube and this confirmed position of the new trach in the mid trachea safely above the emre. Inner cannula was placed and ventilation was converted to the new trach tube with return of ventilatory volumes and suitable peak airway pressures. Oxygen saturation was maintained at greater than 95% throughout the procedure. At this juncture saline lavage was used to remove larger pieces of thick flat sputum from the tracheobronchial tree. The patient tolerated the procedure well.
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
--- NOTE | 2018-02-12 17:20 | XR ---
EXAM DATE: 02/12/2018 12:00 AM EDT AGE/SEX: 67 years / Female INDICATIONS: NG tube placement. CLINICAL DATA: This is the patient's initial encounter. Patient reports that signs and symptoms have been present for 1 day and indicates a pain score of Nonresponsive. MEDICAL/SURGICAL HISTORY: Non-responsive. Non-responsive. COMPARISON: C, ABDOMEN 1V KUB, 01/31/2018. . FINDINGS: There is an NG tube in the stomach. The bowel gas pattern is within normal limits. No significant estevan nges are seen compared to the prior study. CONCLUSION: NG tube in the stomach. Electronically signed by: Alonso Parmar MD 02/12/2018 5:18 PM EDT
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
[2018-02-13 04:28] LABS: Baso # (Auto) 0.1 th/mm3 (0.0-0.2); Baso % (Auto) 0.5 % (0.0-2.0); Eos # (Auto) 0.2 th/mm3 (0.0-0.4); Eos % (Auto) 1.8 % (0.0-4.0); Hematocrit 25.7 % (35.0-46.0); Hemoglobin 8.9 gm/dL (11.6-15.3); Lymph # (Auto) 1.3 th/mm3 (1.0-4.8); Lymph % (Auto) 10.9 % (9.0-44.0); Mean Corpuscular HGB Conc 34.5 % (32.0-36.0); Mean Corpuscular Hemoglobin 30.7 pg (27.0-34.0); Mean Corpuscular Volume 88.9 fL (80.0-100.0); Mean Platelet Volume 6.5 fL (7.0-11.0); Mono # (Auto) 0.9 th/mm3 (0.0-0.9); Mono % (Auto) 7.5 % (0.0-8.0); Neut % (Auto) 79.3 % (16.0-70.0); Platelet Count 1089 th/mm3 (150-450); Red Blood Count 2.89 mil/mm3 (4.00-5.30); Red Cell Distribution Width 16.2 % (11.6-17.2); White Blood Count 11.4 th/mm3 (4.0-11.0)
[2018-02-13] MEDS: Oral Hygiene Kit OROPHARYNG SCH ×3 (04:35→16:00)
[2018-02-13] MEDS: Propofol 1000 mg/100 ml Inj 1,000 MG/100 ML BOTTLE IV.CONT PRN ×3 (04:36→20:22)
[2018-02-13 04:51] LABS: Calcium 7.7 mg/dL (8.5-10.1); Carbon Dioxide 25.6 meq/L (21.0-32.0); Potassium 4.2 meq/L (3.5-5.1)
--- NOTE | 2018-02-13 05:29 | XR ---
EXAM DATE: 02/13/2018 12:00 AM EDT AGE/SEX: 67 years / Female INDICATIONS: Respiratory distress. CLINICAL DATA: This is the patient's subsequent encounter. Patient reports that signs and symptoms h ave been present for 2 weeks and indicates a pain score of Nonresponsive. MEDICAL/SURGICAL HISTORY: Hypertension. Smoker. Breast augmentation. Chest tube, left. COMPARISON: [facility] [place], CHEST 1V SINGLE AP, 02/12/2018. [facility] [place], CT CHEST TUBE PLCMT LEFT, 02/09/2018. . FINDINGS: The tracheostomy tube, NG tube and left chest tube are well placed. There is increased density at the left base with silhouetting the left hemidiaphragm. The right lung is grossly clear. There is a left clavicle fracture and left rib fractures.. CONCLUSION: Tubes and lines in good position. Increased density at the left base representing consolidation/contusion, atelectasis and mild left pl eural effusion. Electronically signed by: Martinez Caraballo MD 02/13/2018 5:28 AM EDT
[2018-02-13] MEDS: Piperacil/Tazo 4.5 GM Premix 4.5 GM/100 ML BAG IV.SIG SCH ×4 (06:01→18:30)
[2018-02-13 06:07] LABS: ABG Base Excess 1.3 mmol/L (-2-2); ABG PCO2 40 mmHg (38-42); ABG PO2 101 mmHg (61-120)
[2018-02-13] MEDS: Amiodarone 200 MG Tablet PO SCH ×2 (09:46→20:11)
[2018-02-13] MEDS: Famotidine 20 MG Tablet PO SCH ×2 (09:46→20:11)
[2018-02-13] MEDS: amLODIPine 5 MG Tablet PO SCH (09:47)
[2018-02-13] MEDS: Enoxaparin Inj 30 MG/0.3 ML Syringe SQ SCH ×2 (09:47→20:12)
[2018-02-13] MEDS: Lisinopril 20 MG Tablet PO SCH (09:47)
[2018-02-13] MEDS: Senna/Docusate Sodium 8.6/50 MG Tablet PO SCH ×2 (09:47→20:15)
[2018-02-13] MEDS: Chlorhexidine 0.12% Oral Kit 15 ML UDC OROPHARYNG SCH ×2 (09:48→20:13)
[2018-02-13] MEDS: Sodium Chloride 0.9% 2 ML Flush BID IV.FLUSH SCH ×2 (09:48→20:14)
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
[2018-02-13] MEDS: Aspirin 325 MG Tablet PO SCH (14:39)
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
[2018-02-13] MEDS ORDERED: Midazolam Inj 5 MG/ML 1 ML Vial ONE (16:55)
[2018-02-13] MEDS ORDERED: Midazolam Inj 5 MG/ML 1 ML Vial IV.PUSH ONE (17:00)
[2018-02-13] MEDS ORDERED: Propofol Inj 500 MG/50 ML Vial ONE (17:24)
--- NOTE | 2018-02-13 17:33 | XR ---
EXAM DATE: 02/13/2018 4:54 PM EDT AGE/SEX: 67 years / Female INDICATIONS: Short of breath. CLINICAL DATA: This is the patient's subsequent encounter. Patient reports that signs and symptoms h ave been present for 2 weeks and indicates a pain score of 0/10. MEDICAL/SURGICAL HISTORY: Hypertension. Breast augmentation. Chest tube, left. COMPARISON: [facility], CHEST 1V SINGLE AP, 02/13/2018. . FINDINGS: Tracheostomy has been removed. Left thoracostomy tube has been removed. An endotracheal tube is prese nt with tip potentially extending into the proximal left mainstem bronchus. The emre is not well se en. There is prominent hyperlucency in the left lower chest/upper abdomen region, location not clearl y determined but potentially mostly in a distended stomach post removal of NG tube. There is diffuse mild interstitial prominence in the right lung and in the visualized left base with diminished lung v olumes compared to earlier exam. Left clavicle fracture again noted. CONCLUSION: Endotracheal tube tip may extend into the proximal left mainstem bronchus. Hyperlucency in the lower left chest/upper abdomen may mostly reflect gaseous distention of the stoma ch. Increased diffuse interstitial lung opacity. Electronically signed by: Martinez Desai MD 02/13/2018 5:31 PM EDT
--- NOTE | 2018-02-13 17:51 | P.PCN ---
Procedure: Diagnosis: Acute hypoxemic respiratory failure Procedure: Direct tracheal intubation with #8.5 tube Narrative: I was called to patient's bedside for severe desaturation. Respiratory therapy noted that they could not bag ventilate the patient and oxygen saturation was in the 82% range. Auscultation revealed inadequate bilateral breath sounds. I removed the inner cannula of the tracheostomy tube and suctioned the woman repeatedly with a large bore suction cannula. Large amounts of secretions were removed. Using direct laryngoscopy the supraglottic region was inspected and suctioned for moderate amounts of secretions. We were still unable to ventilate adequately so the bougie was passed through the indwelling tracheostomy tube, tracheostomy tube was removed and an 8.5 mm straight endotracheal tube was inserted into the main trachea. We were able to suction large amounts of material through this tube and oxygen saturation return to above 90%. The oxygen saturation was in the range of 60-65% for a period of approximately 5 minutes during this process. Stat chest x-ray was ordered and confirmed ET tube at emre directed toward left mainstem bronchus. When viewed on the portable machine endotracheal tube was immediately withdrawn 3 cm to the level of the mid trachea. Sats remained in the range of 92-93%. There was considerable bronchospasm and nebulizer treatment was instituted. A Hinton tube mariscal was placed around the neck to secure the tube. A large collection of air was noted in the left lower chest and a repeat chest x-ray is now being obtained to assess whether this is a recurrent pneumo or sub-diaphragmatic air. The events were discussed at the bedside with Dr. Blackmon
[2018-02-13] MEDS ORDERED: RASS Change Order MISCELLANE ONE ×2 (18:00→20:00)
[2018-02-13] MEDS ORDERED: Lidocaine 1% Inj 50 ML Vial ONE (18:02)
--- NOTE | 2018-02-13 18:28 | XR ---
EXAM DATE: 02/13/2018 5:37 PM EDT AGE/SEX: 67 years / Female INDICATIONS: Hypoxemia. CLINICAL DATA: This is the patient's subsequent encounter. Patient reports that signs and symptoms h ave been present for 2 weeks and indicates a pain score of Nonresponsive. MEDICAL/SURGICAL HISTORY: . Hypertension. Smoker. . Breast augmentation. Chest tube, left. COMPARISON: [facility], CHEST 1V SINGLE AP, 02/13/2018. . FINDINGS: Endotracheal tube is been repositioned and is now just below the level of the clavicles, well above t he emre. Nasogastric tube crosses the GE junction, enters the stomach and extends off the inferior aspect of the film. There are multiple large blebs identified in the left hemithorax superiorly and i nferiorly in the lung appears to be predominantly collapsed may be only minimal aeration in the perih ilar distribution. Heart size is normal. Degenerative spurring of the dorsal spine. Fracture through the mid left clavicular diaphysis. Air density seen at the base of the right neck. CONCLUSION: 1. Multiple blebs in the left hemithorax. The left lung is predominantly collapsed with only minimal aeration in the left perihilar distribution. This may represent a pneumothorax superimposed on chron ic, severe emphysematous changes. 2. Fracture through the left mid clavicle. 3. Endotracheal tube is been repositioned and is now located just below the level of the clavicular heads. 4. Interval placement of a nasogastric tube which crosses the GE junction and enters the stomach. 5. Air density at the base of the right neck. Etiology is uncertain. Electronically signed by: Sergio Sloan MD 02/13/2018 6:27 PM EDT
--- NOTE | 2018-02-13 19:04 | XR ---
EXAM DATE: 02/13/2018 6:16 PM EDT AGE/SEX: 67 years / Female INDICATIONS: Post chest tube placement left. CLINICAL DATA: This is the patient's subsequent encounter. Patient reports that signs and symptoms h ave been present for 2 weeks and indicates a pain score of Nonresponsive. MEDICAL/SURGICAL HISTORY: . Hypertension. Smoker Breast augmentation. Chest tube, left. COMPARISON: [facility], CHEST 1V SINGLE AP, 02/13/2018. . FINDINGS: A single AP view of the chest demonstrates interval placement of a chest tube in the left upper lung. This is successfully reduced the pneumothoraces/blebs identified previously. There are some atelecta tic changes in the left lingula and left lung base. Right lung remains grossly clear. Nasogastric tube again traverses the GE junction and extends off the inferior aspect of the image. Th ere appears to be an endotracheal tube in the position of a tracheostomy. This has backed off since t he prior film. Just at the clavicular heads. This probably needs to be advanced a couple inches to se cure position. Again noted is a fracture through the left mid clavicular diaphysis. Air density is again seen at the right neck base CONCLUSION: 1. Interval placement of a left-sided thoracostomy tube with interval resolution of the previously s een blastic/pneumothoraces in the left hemithorax. 2. Left lingular and left basilar atelectatic changes. 3. There appears to be an endotracheal tube in the position of a tracheostomy. The tip of the cathet er has backed out and is now positioned at the clavicular heads. This probably needs to be advanced 2 cm to secure position. 4. Emphysematous changes in the soft tissues of the right neck base are unchanged. Stable fracture t hrough the left mid clavicular diaphysis. 5. Results were called to Dr. Lal at the time of this dictation. Electronically signed by: Sergio Sloan MD 02/13/2018 7:03 PM EDT
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
[2018-02-13] MEDS: fentaNYL 10 mcg/mL Premix Drip 2,500 MCG/250 ML BAG IV.SIG PRN (21:37)
[2018-02-14] MEDS: Piperacil/Tazo 4.5 GM Premix 4.5 GM/100 ML BAG IV.SIG SCH ×4 (00:48→19:02)
[2018-02-14] MEDS: Oral Hygiene Kit OROPHARYNG SCH ×4 (00:49→16:28)
[2018-02-14 06:07] LABS: Calcium 7.6 mg/dL (8.5-10.1); Carbon Dioxide 24.4 meq/L (21.0-32.0); Potassium 4.4 meq/L (3.5-5.1)
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
[2018-02-14] MEDS: Chlorhexidine 0.12% Oral Kit 15 ML UDC OROPHARYNG SCH ×2 (08:00→20:11)
--- NOTE | 2018-02-14 08:43 | XR ---
EXAM DATE: 02/14/2018 12:00 AM EDT AGE/SEX: 67 years / Female INDICATIONS: ET Tube Position. CLINICAL DATA: This is the patient's subsequent encounter. Patient reports that signs and symptoms h ave been present for 1 week and indicates a pain score of 0/10. MEDICAL/SURGICAL HISTORY: . Hypertension. Smoker. . Breast augmentation. Chest tube, left. COMPARISON: [facility] [place], CHEST 1V SINGLE AP, 02/13/2018. . FINDINGS: Left apical thoracostomy tube is stable. Trach tube is a bit deep with tip just engaging the right ma instem bronchus. Nasogastric tube descends into the stomach. Consolidative change at the left lung ba se is slightly worse than on yesterday's exam. Nasogastric tube descends into the stomach. Cardiac co ntours are grossly stable. CONCLUSION: Trach tube is a bit low with tip engaging the right mainstem bronchus. Slight interval worsening in left base aeration. Electronically signed by: Martinez Desai MD 02/14/2018 8:42 AM EDT
[2018-02-14] MEDS: amLODIPine 5 MG Tablet PO SCH (09:11)
[2018-02-14] MEDS: Senna/Docusate Sodium 8.6/50 MG Tablet PO SCH ×2 (09:11→20:10)
[2018-02-14] MEDS: Sodium Chloride 0.9% 2 ML Flush BID IV.FLUSH SCH ×2 (09:11→20:10)
[2018-02-14] MEDS: Famotidine 20 MG Tablet PO SCH ×2 (09:11→20:10)
[2018-02-14] MEDS: Amiodarone 200 MG Tablet PO SCH ×2 (09:11→20:10)
[2018-02-14] MEDS: fentaNYL 10 mcg/mL Premix Drip 2,500 MCG/250 ML BAG IV.SIG PRN ×2 (09:12→22:39)
[2018-02-14] MEDS: Lisinopril 20 MG Tablet PO SCH (09:12)
[2018-02-14 09:15] LABS: Baso % (Auto) 0.4 % (0.0-2.0); Eos # (Auto) 0.2 th/mm3 (0.0-0.4); Eos % (Auto) 1.6 % (0.0-4.0); Hematocrit 25.3 % (35.0-46.0); Hemoglobin 8.5 gm/dL (11.6-15.3); Lymph # (Auto) 1.7 th/mm3 (1.0-4.8); Lymph % (Auto) 12.9 % (9.0-44.0); Mean Corpuscular HGB Conc 33.6 % (32.0-36.0); Mean Corpuscular Hemoglobin 30.2 pg (27.0-34.0); Mean Corpuscular Volume 89.8 fL (80.0-100.0); Mean Platelet Volume 6.4 fL (7.0-11.0); Mono # (Auto) 0.8 th/mm3 (0.0-0.9); Mono % (Auto) 6.2 % (0.0-8.0); Neut # (Auto) 10.4 th/mm3 (1.8-7.7); Neut % (Auto) 78.9 % (16.0-70.0); Platelet Count 973 th/mm3 (150-450); Red Blood Count 2.82 mil/mm3 (4.00-5.30); Red Cell Distribution Width 16.4 % (11.6-17.2); White Blood Count 13.2 th/mm3 (4.0-11.0)
[2018-02-14] MEDS: Propofol 1000 mg/100 ml Inj 1,000 MG/100 ML BOTTLE IV.CONT PRN ×2 (09:36→22:38)
[2018-02-14] MEDS: Enoxaparin Inj 30 MG/0.3 ML Syringe SQ SCH ×2 (10:12→20:10)
[2018-02-14] MEDS: Aspirin 325 MG Tablet PO SCH (10:12)
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
--- NOTE | 2018-02-14 17:26 | XR ---
EXAM DATE: 02/14/2018 4:25 PM EDT AGE/SEX: 67 years / Female INDICATIONS: Post Dobbhoff placement. CLINICAL DATA: This is the patient's subsequent encounter. Patient reports that signs and symptoms h ave been present for 1 day and indicates a pain score of Nonresponsive. MEDICAL/SURGICAL HISTORY: Hypertension. None. [place] [facility] [place]. . FINDINGS: There is a feeding tube and NG tube in the distal portion of the stomach. The bowel gas pattern is st able and grossly unremarkable. CONCLUSION: There is an NG tube and a feeding tube in the distal stomach. Electronically signed by: Alonso Parmar MD 02/14/2018 5:25 PM EDT
[2018-02-15] MEDS: Piperacil/Tazo 4.5 GM Premix 4.5 GM/100 ML BAG IV.SIG SCH ×4 (00:16→19:56)
[2018-02-15] MEDS: Oral Hygiene Kit OROPHARYNG SCH ×4 (00:16→16:57)
[2018-02-15 03:48] LABS: Baso # (Auto) 0.1 th/mm3 (0.0-0.2); Baso % (Auto) 0.6 % (0.0-2.0); Eos # (Auto) 0.5 th/mm3 (0.0-0.4); Eos % (Auto) 3.1 % (0.0-4.0); Hematocrit 30.8 % (35.0-46.0); Hemoglobin 9.7 gm/dL (11.6-15.3); Lymph # (Auto) 1.3 th/mm3 (1.0-4.8); Lymph % (Auto) 7.9 % (9.0-44.0); Mean Corpuscular HGB Conc 31.7 % (32.0-36.0); Mean Corpuscular Hemoglobin 29.2 pg (27.0-34.0); Mean Corpuscular Volume 92.4 fL (80.0-100.0); Mono # (Auto) 0.7 th/mm3 (0.0-0.9); Mono % (Auto) 4.3 % (0.0-8.0); Neut # (Auto) 13.8 th/mm3 (1.8-7.7); Neut % (Auto) 84.1 % (16.0-70.0); Platelet Count 923 th/mm3 (150-450); Red Blood Count 3.33 mil/mm3 (4.00-5.30); Red Cell Distribution Width 16.8 % (11.6-17.2); White Blood Count 16.4 th/mm3 (4.0-11.0)
[2018-02-15 04:05] LABS: Calcium 7.8 mg/dL (8.5-10.1); Carbon Dioxide 24.4 meq/L (21.0-32.0)
[2018-02-15 04:07] LABS: Potassium 4.7 meq/L (3.5-5.1)
--- NOTE | 2018-02-15 05:45 | XR ---
EXAM DATE: 02/15/2018 12:00 AM EDT AGE/SEX: 67 years / Female INDICATIONS: Shortness of breath. CLINICAL DATA: This is the patient's subsequent encounter. Patient reports that signs and symptoms h ave been present for 3 weeks and indicates a pain score of Nonresponsive. MEDICAL/SURGICAL HISTORY: . Hypertension. Smoker. . Breast augmentation. Chest tube, left. [place] [facility] [place]. . FINDINGS: There is tracheostomy tube present with the tip 1.2 cm from the emre. There appears to be a feeding tube in place with the tip directed into the stomach. The tip is not seen on this chest x-ray. There is a left-sided chest tube. A significant pneumothorax is not seen. There is increased density at th e left base. The right lung is grossly clear. The heart size is normal. CONCLUSION: Left chest tube without a are seen. Increased density at the left base representing a combination of atelectasis, consolidation and/or ef fusion. This appears unchanged. Electronically signed by: Martinez Caraballo MD 02/15/2018 5:44 AM EDT
[2018-02-15 05:47] LABS: ABG Base Excess 2.5 mmol/L (-2-2); ABG PCO2 39 mmHg (38-42); ABG PO2 72 mmHg (61-120)
[2018-02-15] MEDS: Lisinopril 20 MG Tablet PO SCH (08:03)
[2018-02-15] MEDS: Amiodarone 200 MG Tablet PO SCH ×2 (08:03→20:21)
[2018-02-15] MEDS: Chlorhexidine 0.12% Oral Kit 15 ML UDC OROPHARYNG SCH ×2 (08:03→20:22)
[2018-02-15] MEDS: amLODIPine 5 MG Tablet PO SCH (08:03)
[2018-02-15] MEDS: Famotidine 20 MG Tablet PO SCH ×2 (08:03→20:21)
[2018-02-15] MEDS: Aspirin 325 MG Tablet PO SCH (08:03)
[2018-02-15] MEDS: Enoxaparin Inj 30 MG/0.3 ML Syringe SQ SCH ×2 (08:03→20:22)
[2018-02-15] MEDS: Senna/Docusate Sodium 8.6/50 MG Tablet PO SCH ×2 (08:04→20:22)
[2018-02-15] MEDS: Sodium Chloride 0.9% 2 ML Flush BID IV.FLUSH SCH ×2 (08:04→21:21)
[2018-02-15 08:21] LABS: Platelet Morphology Normal (Normal)
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
[2018-02-15 16:22] LABS: Bacteria,Urine Rare /hpf; Bilirubin,Urine Negative (Negative); Clarity,Urine Hazy (Clear); Color,Urine Yellow (Yellw/Straw); Glucose,Urine (UA) Negative (Negative); Leukocyte Esterase,Urine Negative (Negative); Mucus,Urine Few /lpf (Occasional); Nitrite,Urine Negative (Negative); Specific Gravity,Urine 1.018 (1.002-1.035); Squamous Epithelial Cell,Urine 8 /hpf (0-5)
[2018-02-15] MEDS: Propofol 1000 mg/100 ml Inj 1,000 MG/100 ML BOTTLE IV.CONT PRN (16:56)
[2018-02-15] MEDS: fentaNYL 10 mcg/mL Premix Drip 2,500 MCG/250 ML BAG IV.SIG PRN (20:41)
[2018-02-16] MEDS: Piperacil/Tazo 4.5 GM Premix 4.5 GM/100 ML BAG IV.SIG SCH ×4 (00:17→20:09)
[2018-02-16] MEDS: Oral Hygiene Kit OROPHARYNG SCH ×5 (00:18→23:38)
[2018-02-16] MEDS: amLODIPine 5 MG Tablet PO SCH (09:22)
[2018-02-16] MEDS: Aspirin 325 MG Tablet PO SCH (09:22)
[2018-02-16] MEDS: Chlorhexidine 0.12% Oral Kit 15 ML UDC OROPHARYNG SCH ×2 (09:22→20:58)
[2018-02-16] MEDS: Amiodarone 200 MG Tablet PO SCH ×2 (09:22→21:11)
[2018-02-16] MEDS: Famotidine 20 MG Tablet PO SCH ×2 (09:22→21:11)
[2018-02-16] MEDS: Lisinopril 20 MG Tablet PO SCH (09:22)
[2018-02-16] MEDS: Sodium Chloride 0.9% 2 ML Flush BID IV.FLUSH SCH ×2 (09:23→21:11)
[2018-02-16] MEDS: Enoxaparin Inj 30 MG/0.3 ML Syringe SQ SCH ×2 (09:23→21:10)
[2018-02-16] MEDS: Senna/Docusate Sodium 8.6/50 MG Tablet PO SCH ×2 (09:23→21:11)
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
[2018-02-17] MEDS: Piperacil/Tazo 4.5 GM Premix 4.5 GM/100 ML BAG IV.SIG SCH ×4 (01:27→18:02)
[2018-02-17] MEDS: Oral Hygiene Kit OROPHARYNG SCH ×3 (03:07→17:04)
--- NOTE | 2018-02-17 04:43 | XR ---
EXAM DATE: 02/17/2018 4:34 AM EDT AGE/SEX: 67 years / Female INDICATIONS: Respiratory distress. CLINICAL DATA: This is the patient's subsequent encounter. Patient reports that signs and symptoms h ave been present for 3 weeks and indicates a pain score of Nonresponsive. MEDICAL/SURGICAL HISTORY: Hypertension. Smoker. Breast augmentation. Chest tube, left. COMPARISON: [facility] [place], CHEST 1V SINGLE AP, 02/15/2018. . FINDINGS: Tracheostomy in place. Gastric tube traverses the [id number]. Left chest tube remains projected at the left apex. Consolidation in the left lower lung with loss of delineation of the inferior left he art border and entire left hemidiaphragm. No infiltrates in the right lung. No evidence of pneumothor ax. CONCLUSION: Persistent left lower lung consolidation. No evidence of pneumothorax. Left chest tube stable in posi tion. Electronically signed by: Italo Gonzales MD 02/17/2018 4:42 AM EDT
[2018-02-17 05:20] LABS: Baso # (Auto) 0.1 th/mm3 (0.0-0.2); Baso % (Auto) 0.8 % (0.0-2.0); Eos # (Auto) 0.1 th/mm3 (0.0-0.4); Eos % (Auto) 1.6 % (0.0-4.0); Hematocrit 27.2 % (35.0-46.0); Hemoglobin 9.2 gm/dL (11.6-15.3); Lymph # (Auto) 1.5 th/mm3 (1.0-4.8); Lymph % (Auto) 19.6 % (9.0-44.0); Mean Corpuscular HGB Conc 33.6 % (32.0-36.0); Mean Corpuscular Hemoglobin 30.2 pg (27.0-34.0); Mean Platelet Volume 6.7 fL (7.0-11.0); Mono # (Auto) 0.7 th/mm3 (0.0-0.9); Mono % (Auto) 9.6 % (0.0-8.0); Neut # (Auto) 5.3 th/mm3 (1.8-7.7); Neut % (Auto) 68.4 % (16.0-70.0); Platelet Count 783 th/mm3 (150-450); Red Blood Count 3.03 mil/mm3 (4.00-5.30); Red Cell Distribution Width 15.4 % (11.6-17.2); White Blood Count 7.8 th/mm3 (4.0-11.0)
[2018-02-17 05:58] LABS: Alanine Aminotransferase 41 U/L (10-53); Albumin 1.8 g/dL (3.4-5.0); Alkaline Phosphatase 141 U/L (45-117); Anion Gap 8 meq/L (5-15); Aspartate Aminotransferase 23 U/L (15-37); Blood Urea Nitrogen 10 mg/dL (7-18); Carbon Dioxide 26.6 meq/L (21.0-32.0); Chloride 103 meq/L (98-107); Glomerular Filtration Rate Greater Than 89 mL/min (>89); Glucose,Random 96 mg/dL (74-106); Potassium 3.6 meq/L (3.5-5.1); Sodium 138 meq/L (136-145); Total Protein 6.1 g/dL (6.4-8.2)
[2018-02-17 06:12] LABS: ABG Base Excess 3.2 mmol/L (-2-2); ABG PCO2 37 mmHg (38-42); ABG PO2 101 mmHg (61-120)
[2018-02-17] MEDS: Enoxaparin Inj 30 MG/0.3 ML Syringe SQ SCH ×2 (08:39→20:26)
[2018-02-17] MEDS: Lisinopril 20 MG Tablet PO SCH (08:40)
[2018-02-17] MEDS: Famotidine 20 MG Tablet PO SCH ×2 (08:40→20:26)
[2018-02-17] MEDS: Aspirin 325 MG Tablet PO SCH (08:40)
[2018-02-17] MEDS: Amiodarone 200 MG Tablet PO SCH ×2 (08:40→20:26)
[2018-02-17] MEDS: amLODIPine 5 MG Tablet PO SCH (08:40)
[2018-02-17] MEDS: Chlorhexidine 0.12% Oral Kit 15 ML UDC OROPHARYNG SCH ×2 (08:41→20:26)
[2018-02-17] MEDS: Sodium Chloride 0.9% 2 ML Flush BID IV.FLUSH SCH ×2 (08:42→20:26)
[2018-02-17] MEDS ORDERED: Labetalol HCl Inj 100 MG/20 ML Vial IV.PUSH PRN (10:05)
[2018-02-17] MEDS: Senna/Docusate Sodium 8.6/50 MG Tablet PO SCH ×2 (10:06→20:26)
--- NOTE | 2018-02-17 10:58 | P.PNCC ---
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 patient vomited this morning and therefore will hold the feedings till tomorrow She has diarrhea in addition to the same Renal/I&O: Renal function preserved and normal Assessment and Plan Plan: continue APRV wean continue pain control continue tube feeds CXR in am ABG in am Follow cultures Consider CT scanning without IV contrast early next week Attestation: Critical care 35 minutes
[2018-02-17] MEDS: Ketorolac Inj 30 MG/ML (IVP) Vial IV.PUSH SCH ×2 (11:19→17:03)
[2018-02-18] MEDS: Ketorolac Inj 30 MG/ML (IVP) Vial IV.PUSH SCH ×5 (00:29→23:21)
[2018-02-18] MEDS: Piperacil/Tazo 4.5 GM Premix 4.5 GM/100 ML BAG IV.SIG SCH ×4 (00:30→21:27)
[2018-02-18] MEDS: Oral Hygiene Kit OROPHARYNG SCH ×4 (00:30→16:31)
[2018-02-18 05:10] LABS: Baso # (Auto) 0.1 th/mm3 (0.0-0.2); Eos # (Auto) 0.2 th/mm3 (0.0-0.4); Eos % (Auto) 3.2 % (0.0-4.0); Hematocrit 25.3 % (35.0-46.0); Hemoglobin 8.4 gm/dL (11.6-15.3); Lymph % (Auto) 16.3 % (9.0-44.0); Mean Corpuscular HGB Conc 33.3 % (32.0-36.0); Mean Corpuscular Volume 90.1 fL (80.0-100.0); Mean Platelet Volume 6.6 fL (7.0-11.0); Mono # (Auto) 0.6 th/mm3 (0.0-0.9); Mono % (Auto) 8.9 % (0.0-8.0); Neut # (Auto) 4.4 th/mm3 (1.8-7.7); Neut % (Auto) 70.6 % (16.0-70.0); Platelet Count 739 th/mm3 (150-450); Red Blood Count 2.81 mil/mm3 (4.00-5.30); Red Cell Distribution Width 15.4 % (11.6-17.2); White Blood Count 6.2 th/mm3 (4.0-11.0)
[2018-02-18 05:31] LABS: ABG Base Excess 1.9 mmol/L (-2-2); ABG PCO2 38 mmHg (38-42); ABG PO2 95 mmHg (61-120)
[2018-02-18 05:33] LABS: Albumin 1.9 g/dL (3.4-5.0); Anion Gap 11 meq/L (5-15); Aspartate Aminotransferase 27 U/L (15-37); Blood Urea Nitrogen 12 mg/dL (7-18); Calcium 7.9 mg/dL (8.5-10.1); Carbon Dioxide 25.5 meq/L (21.0-32.0); Chloride 100 meq/L (98-107); Glomerular Filtration Rate Greater Than 89 mL/min (>89); Glucose,Random 75 mg/dL (74-106); Potassium 3.5 meq/L (3.5-5.1); Sodium 136 meq/L (136-145)
[2018-02-18 05:34] LABS: Alanine Aminotransferase 43 U/L (10-53)
[2018-02-18 05:37] LABS: Alkaline Phosphatase 137 U/L (45-117); Total Protein 6.1 g/dL (6.4-8.2)
--- NOTE | 2018-02-18 06:09 | XR ---
EXAM DATE: 02/18/2018 5:49 AM EDT AGE/SEX: 67 years / Female INDICATIONS: Follow up trauma, possible respiratory disease. CLINICAL DATA: This is the patient's subsequent encounter. Patient reports that signs and symptoms h ave been present for 3 weeks and indicates a pain score of 0/10. MEDICAL/SURGICAL HISTORY: . Hypertension. Smoker. . Breast augmentation. Chest tube, left. [place] [facility] [place]. . FINDINGS: Tracheostomy, left chest tube, gastric tube are stable. Persistent pleural parenchymal opacity lower lateral left lung with loss of delineation of the lateral left hemidiaphragm. No evidence of pneumoth orax. The right lung is clear. Stable fractures left clavicle and left ribs. CONCLUSION: Persistent, stable, left lower lung consolidation. Electronically signed by: Italo Gonzales MD 02/18/2018 6:07 AM EDT
[2018-02-18] MEDS: Famotidine 20 MG Tablet PO SCH ×2 (09:12→21:24)
[2018-02-18] MEDS: Lisinopril 20 MG Tablet PO SCH (09:12)
[2018-02-18] MEDS: Enoxaparin Inj 30 MG/0.3 ML Syringe SQ SCH ×2 (09:12→21:24)
[2018-02-18] MEDS: Aspirin 325 MG Tablet PO SCH (09:12)
[2018-02-18] MEDS: amLODIPine 5 MG Tablet PO SCH (09:12)
[2018-02-18] MEDS: Amiodarone 200 MG Tablet PO SCH ×2 (09:12→21:24)
[2018-02-18] MEDS: Chlorhexidine 0.12% Oral Kit 15 ML UDC OROPHARYNG SCH ×2 (09:13→21:25)
[2018-02-18] MEDS: Senna/Docusate Sodium 8.6/50 MG Tablet PO SCH ×2 (09:14→21:24)
[2018-02-18] MEDS: Sodium Chloride 0.9% 2 ML Flush BID IV.FLUSH SCH ×2 (09:14→21:25)
--- NOTE | 2018-02-18 10:02 | P.PNCC ---
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 Score: 14.00 Agitated Behavior Total Score: 14 Assessment and Plan Plan: continue APRV wean continue pain control continue tube feeds CXR in am ABG in am Follow cultures Consider CT scanning without IV contrast early next week Attestation: Critical care 34 minutes
--- NOTE | 2018-02-18 14:25 | XR ---
EXAM DATE: 02/18/2018 2:17 PM EDT AGE/SEX: 67 years / Female INDICATIONS: S/P Chest tube removal. CLINICAL DATA: This is the patient's initial encounter. Patient reports that signs and symptoms have been present for 1 day and indicates a pain score of Nonresponsive. MEDICAL/SURGICAL HISTORY: . Hypertension. Smoker. . Breast augmentation. Chest tube, left. . COMPARISON: [facility] – [place], CHEST 1V SINGLE AP, 02/18/2018. . FINDINGS: The patient's tracheostomy tube and possible feeding tube are both in good position. Minimal consolid ation left lung base is stable. No visible pneumothorax. Right lung is relatively clear. CONCLUSION: Small bilateral pleural effusions. Mild interstitial prominence throughout the lungs are unchanged. T he left-sided chest tube has been removed without an identifiable pneumothorax. There is an interface overlying the left third rib however there does appear to be lung markings above it. Electronically signed by: Deejay Price MD 02/18/2018 2:23 PM EDT
[2018-02-19] MEDS: Piperacil/Tazo 4.5 GM Premix 4.5 GM/100 ML BAG IV.SIG SCH ×4 (00:07→18:50)
[2018-02-19] MEDS: Oral Hygiene Kit OROPHARYNG SCH ×4 (00:08→15:58)
[2018-02-19] MEDS: Ketorolac Inj 30 MG/ML (IVP) Vial IV.PUSH SCH ×4 (05:03→22:40)
[2018-02-19 05:24] LABS: Hematocrit 22.8 % (35.0-46.0); Hemoglobin 7.7 gm/dL (11.6-15.3); Mean Corpuscular HGB Conc 33.8 % (32.0-36.0); Mean Corpuscular Hemoglobin 29.8 pg (27.0-34.0); Mean Corpuscular Volume 88.2 fL (80.0-100.0); Mean Platelet Volume 6.1 fL (7.0-11.0); Platelet Count 636 th/mm3 (150-450); Red Blood Count 2.59 mil/mm3 (4.00-5.30); Red Cell Distribution Width 15.4 % (11.6-17.2); White Blood Count 14.5 th/mm3 (4.0-11.0)
[2018-02-19 05:45] LABS: Alanine Aminotransferase 34 U/L (10-53); Albumin 1.8 g/dL (3.4-5.0); Anion Gap 14 meq/L (5-15); Aspartate Aminotransferase 16 U/L (15-37); Blood Urea Nitrogen 11 mg/dL (7-18); Calcium 7.6 mg/dL (8.5-10.1); Carbon Dioxide 23.3 meq/L (21.0-32.0); Chloride 99 meq/L (98-107); Glomerular Filtration Rate Greater Than 89 mL/min (>89); Glucose,Random 79 mg/dL (74-106); Potassium 3.3 meq/L (3.5-5.1); Sodium 136 meq/L (136-145)
--- NOTE | 2018-02-19 05:45 | XR ---
EXAM DATE: 02/19/2018 5:32 AM EDT AGE/SEX: 67 years / Female INDICATIONS: Shortness of breath. CLINICAL DATA: This is the patient's subsequent encounter. Patient reports that signs and symptoms h ave been present for 3 weeks and indicates a pain score of 0/10. MEDICAL/SURGICAL HISTORY: Hypertension. Smoker. Breast augmentation. Chest tube, left. COMPARISON: [facility] [place]ST 1V SINGLE AP, 02/18/2018. . FINDINGS: Parenchymal consolidation and small effusion at the left base not significantly changed. On the right , there is modestly increased basilar consolidation and probably a developing small effusion. No pneu mothorax on either side. Heart size stable, upper limits of normal. Tracheostomy tube again seen. There is a Dobbhoff feeding tube coursing into the stomach. CONCLUSION: 1. Worsening parenchymal consolidation and very small effusion at the right base. 2. Consolidation and small effusion at the left lung base not significantly changed. Electronically signed by: Martinez Silva MD 02/19/2018 5:44 AM EDT
[2018-02-19 05:47] LABS: Alkaline Phosphatase 136 U/L (45-117); Total Protein 5.7 g/dL (6.4-8.2)
[2018-02-19 06:05] LABS: ABG Base Excess -0.9 mmol/L (-2-2); ABG PCO2 38 mmHg (38-42); ABG PO2 111 mmHg (61-120)
[2018-02-19 07:48] LABS: Lymphocytes 1 % (9-44); Platelet Morphology Normal (Normal)
[2018-02-19] MEDS: Chlorhexidine 0.12% Oral Kit 15 ML UDC OROPHARYNG SCH ×2 (08:00→21:16)
[2018-02-19] MEDS: Amiodarone 200 MG Tablet PO SCH ×2 (10:22→21:17)
[2018-02-19] MEDS: amLODIPine 5 MG Tablet PO SCH (10:22)
[2018-02-19] MEDS: Lisinopril 20 MG Tablet PO SCH (10:22)
[2018-02-19] MEDS: Aspirin 325 MG Tablet PO SCH (10:22)
[2018-02-19] MEDS: Famotidine 20 MG Tablet PO SCH ×2 (10:22→21:17)
[2018-02-19] MEDS: Enoxaparin Inj 30 MG/0.3 ML Syringe SQ SCH ×2 (10:23→21:17)
[2018-02-19] MEDS: Sodium Chloride 0.9% 2 ML Flush BID IV.FLUSH SCH ×2 (10:23→21:17)
[2018-02-19] MEDS: Senna/Docusate Sodium 8.6/50 MG Tablet PO SCH ×2 (10:24→21:17)
--- NOTE | 2018-02-19 12:01 | P.PNCC ---
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 and enteral feeds have been held for the same reason Diarrhea persists and I believe cramping from the same is causing patient's nausea Renal/I&O: Renal function preserved Will remove Kam again but apparently is very hard to clean the patient with diarrhea in all and not having the Kam catheter. On the other hand it may be actually better not to have the Kam catheter with diarrhea next to it Assessment and Plan Plan: continue APRV wean continue pain control continue tube feeds CXR in am ABG in am Follow cultures Consider CT scanning without IV contrast early next week Attestation: This patient will benefit greatly from being transferred to a LTAC with aggressive physical therapy RENE yet [employer] is denying this service to the patient which is essential in the best interest of the patient's recovery I have discussed this with the respiratory therapy physical therapy and LTAC select staff. Critical care time 34-minute
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
[2018-02-19] MEDS: Potassium Chloride 25 MEQ Effervescent Tablet PO PRN (21:18)
[2018-02-20] MEDS: Oral Hygiene Kit OROPHARYNG SCH ×5 (01:03→23:09)
[2018-02-20] MEDS: Piperacil/Tazo 4.5 GM Premix 4.5 GM/100 ML BAG IV.SIG SCH ×4 (01:06→18:34)
[2018-02-20] MEDS: Ketorolac Inj 30 MG/ML (IVP) Vial IV.PUSH SCH ×4 (04:43→23:09)
[2018-02-20 06:03] LABS: ABG Base Excess -0.6 mmol/L (-2-2); ABG PCO2 30 mmHg (38-42); ABG PO2 117 mmHg (61-120)
--- NOTE | 2018-02-20 06:10 | XR ---
EXAM DATE: 02/20/2018 5:49 AM EDT AGE/SEX: 67 years / Female INDICATIONS: Respiratory distress. CLINICAL DATA: This is the patient's subsequent encounter. Patient reports that signs and symptoms h ave been present for 3 weeks and indicates a pain score of 0/10. MEDICAL/SURGICAL HISTORY: Hypertension. Smoker. Breast augmentation. COMPARISON: [facility] – [place], CHEST 1V SINGLE AP, 02/19/2018. . FINDINGS: Bibasilar consolidation with small right and [id number] left pleural effusions are again noted and not significantly changed. No pneumothorax. Heart size stable, within normal limits. Tracheostomy tube again noted. Feeding tube coursing in the stomach again seen. CONCLUSION: No change. Electronically signed by: Martinez Silva MD 02/20/2018 6:09 AM EDT
[2018-02-20] MEDS: Chlorhexidine 0.12% Oral Kit 15 ML UDC OROPHARYNG SCH ×2 (08:15→20:26)
[2018-02-20] MEDS: Lisinopril 20 MG Tablet PO SCH (08:49)
[2018-02-20] MEDS: Famotidine 20 MG Tablet PO SCH ×2 (08:49→20:26)
[2018-02-20] MEDS: Sodium Chloride 0.9% 2 ML Flush BID IV.FLUSH SCH ×2 (08:50→20:26)
[2018-02-20] MEDS: Senna/Docusate Sodium 8.6/50 MG Tablet PO SCH ×2 (08:50→20:27)
[2018-02-20] MEDS: Amiodarone 200 MG Tablet PO SCH ×2 (08:50→20:26)
[2018-02-20] MEDS: amLODIPine 5 MG Tablet PO SCH (08:50)
[2018-02-20] MEDS: Enoxaparin Inj 30 MG/0.3 ML Syringe SQ SCH ×2 (08:50→20:26)
[2018-02-20] MEDS: Aspirin 325 MG Tablet PO SCH (08:50)
--- NOTE | 2018-02-20 10:42 | XR ---
EXAM DATE: 02/20/2018 10:36 AM EDT AGE/SEX: 67 years / Female INDICATIONS: Evaluate for ileus. CLINICAL DATA: This is the patient's subsequent encounter. Patient reports that signs and symptoms h ave been present for 1 week and indicates a pain score of 0/10. MEDICAL/SURGICAL HISTORY: . Hypertension. Smoker. Breast augmentation. . Chest tube, left [place] [facility] [place]. . FINDINGS: The abdominal bowel gas pattern is normal. No abnormal masses, calcifications, or organomegaly is s een. The osseous structures are unremarkable. The feeding tube is identified in the distal stomach CONCLUSION: Feeding tube in the distal stomach. Bowel gas pattern is normal. Electronically signed by: Deejay Price MD 02/20/2018 10:41 AM EDT
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
--- NOTE | 2018-02-20 15:48 | P.PNCC ---
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 tenderness no guarding Renal/I&O: Output is adequate BUN and creatinine ratio is preserved Assessment and Plan Plan: Monitor patient with nausea If does not improve we will proceed with CT scan of the abdomen and pelvis In the meantime start patient on Reglan, rule out C. difficile monitor hydration status Trach collar trials
[2018-02-21] MEDS: Piperacil/Tazo 4.5 GM Premix 4.5 GM/100 ML BAG IV.SIG SCH ×3 (00:33→12:19)
[2018-02-21] MEDS: Oral Hygiene Kit OROPHARYNG SCH ×2 (03:19→11:26)
[2018-02-21 04:37] LABS: Baso % (Auto) 0.3 % (0.0-2.0); Hematocrit 31.7 % (35.0-46.0); Hemoglobin 10.6 gm/dL (11.6-15.3); Lymph # (Auto) 1.2 th/mm3 (1.0-4.8); Lymph % (Auto) 9.5 % (9.0-44.0); Mean Corpuscular HGB Conc 33.4 % (32.0-36.0); Mean Corpuscular Hemoglobin 28.8 pg (27.0-34.0); Mean Corpuscular Volume 86.3 fL (80.0-100.0); Mean Platelet Volume 6.8 fL (7.0-11.0); Mono % (Auto) 7.8 % (0.0-8.0); Neut # (Auto) 10.4 th/mm3 (1.8-7.7); Neut % (Auto) 82.4 % (16.0-70.0); Platelet Count 611 th/mm3 (150-450); Red Blood Count 3.68 mil/mm3 (4.00-5.30); White Blood Count 12.6 th/mm3 (4.0-11.0)
[2018-02-21 04:47] VITALS: TEMP 98.6
[2018-02-21 04:47] LABS: Alanine Aminotransferase 29 U/L (10-53); Anion Gap 14 meq/L (5-15); Aspartate Aminotransferase 13 U/L (15-37); Carbon Dioxide 21.9 meq/L (21.0-32.0); Chloride 103 meq/L (98-107); Glomerular Filtration Rate Greater Than 89 mL/min (>89); Glucose,Random 88 mg/dL (74-106); Potassium 3.1 meq/L (3.5-5.1); Sodium 139 meq/L (136-145)
[2018-02-21 04:52] LABS: Alkaline Phosphatase 124 U/L (45-117); Blood Urea Nitrogen 20 mg/dL (7-18); Total Protein 6.2 g/dL (6.4-8.2)
[2018-02-21] MEDS: Ketorolac Inj 30 MG/ML (IVP) Vial IV.PUSH SCH ×2 (05:27→11:14)
[2018-02-21 06:04] LABS: ABG Base Excess -2.2 mmol/L (-2-2); ABG PCO2 32 mmHg (38-42); ABG PO2 97 mmHg (61-120)
--- NOTE | 2018-02-21 06:24 | XR ---
EXAM DATE: 02/21/2018 6:14 AM EDT AGE/SEX: 67 years / Female INDICATIONS: Shortness of breath. CLINICAL DATA: This is the patient's subsequent encounter. Patient reports that signs and symptoms h ave been present for 3 weeks and indicates a pain score of Nonresponsive. MEDICAL/SURGICAL HISTORY: Hypertension. Breast augmentation. COMPARISON: [facility] – [place], CHEST 1V SINGLE AP, 02/20/2018. . FINDINGS: Basilar predominant airspace opacities are again seen of both lungs. A small to moderate pleural effu malissa is seen on the left. Also mild left volume loss. These findings are not significantly changed. N o pneumothorax. Heart size stable and within normal limits. Tracheostomy tube again seen. CONCLUSION: No significant change. Electronically signed by: Martinez Silva MD 02/21/2018 6:23 AM EDT
[2018-02-21] MEDS: Chlorhexidine 0.12% Oral Kit 15 ML UDC OROPHARYNG SCH (08:11)
[2018-02-21] MEDS: Senna/Docusate Sodium 8.6/50 MG Tablet PO SCH (08:13)
[2018-02-21 08:28] VITALS: O2SAT 99
[2018-02-21 08:39] VITALS: BP 154/71
[2018-02-21] MEDS: Enoxaparin Inj 30 MG/0.3 ML Syringe SQ SCH (09:07)
[2018-02-21] MEDS: Amiodarone 200 MG Tablet PO SCH (09:08)
[2018-02-21] MEDS: Aspirin 325 MG Tablet PO SCH (09:08)
[2018-02-21] MEDS: Lisinopril 20 MG Tablet PO SCH (09:08)
[2018-02-21] MEDS: amLODIPine 5 MG Tablet PO SCH (09:08)
[2018-02-21] MEDS: Famotidine 20 MG Tablet PO SCH (09:09)
[2018-02-21] MEDS: Sodium Chloride 0.9% 2 ML Flush BID IV.FLUSH SCH (09:10)
[2018-02-21] MEDS ORDERED: Sertraline 50 MG Tablet PO SCH (10:00)
[2018-02-21 10:57] VITALS: PULSE 94
[2018-02-21 12:19] VITALS: RESP 19
--- NOTE | 2018-02-21 12:39 | P.PNCC ---
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 difficile is negative Renal/I&O: Well-hydrated, adequate urine output Assessment and Plan Plan: Patient patient improved compared to yesterday she is less nauseous so that we will start her tube feeds She is on trach collar tolerating very well Patient has been cleared for discharge to select
--- NOTE | 2018-02-22 15:47 | P.DS ---
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 Head: Normocephalic Skin: Warm and dry Neck: Supple, WEBFED OFFSET PRESS OPERATOR secured to trach collar. Lungs: Lungs clear and diminished to auscultation bilaterally. Heart: Regular rate and rhythm, No JVD. Abdomen: Soft, round, nondistended. + BS Extremities: MAEW, + perfused Neuro: Awake and alert. Follows commands. Results Procedures completed during hospitalization: 01/26: LEFT CT placement 01/29: Intubated 02/06: LEFT CT removed 02/07: Extubated, STRIDOR then re-intubated 02/07: Bronchoscopy 02/09: Bronchoscopy 02/09: LEFT CT placed by IR (loculated effusion) 02/12: WEBFED OFFSET PRESS OPERATOR placement 02/13: DC LEFT CT 02/14: LEFT CT placed for PTX 02/16: Exchange ETT for #8 WEBFED OFFSET PRESS OPERATOR at bedside. 02/18: L CT removed - Impressions ITS Impressions Cervical Spine CT 01/26/18 16:23 CONCLUSION: 1. Intact cervical spine. 2. Mild degenerative changes as described. 3. Clavicle and upper rib fractures partly seen on the left with a pneumothorax and neck and chest wall emphysema. CT of the chest is pending. Pelvis X-Ray 01/26/18 16:23 CONCLUSION: 1. No acute fracture or dislocation. 2. Degenerative changes involving the lower lumbar spine. Abdomen/Pelvis CT 01/26/18 17:23 CONCLUSION: 1. No acute visceral organ injury. 2. Mild acute superior endplate compression fracture of L1. 3. Fractures posteriorly of the left sixth through 12th ribs. This is in addition to fractures of the first through fifth ribs that are better seen on the chest CT and please refer to that report. Patient has a small left hemothorax and small moderate left pneumothorax with chest wall emphysema. Lumbar Spine CT 01/26/18 17:23 CONCLUSION: 1. Acute, mild superior endplate compression fracture of L1. 2. Otherwise intact lumbar spine. No subluxations. 3. Multilevel degenerative changes as described. Thoracic Spine CT 01/26/18 17:23 CONCLUSION: 1. Intact thoracic spine. 2. Multiple left posterior rib fractures. Carotid Doppler Study 01/27/18 00:00 CONCLUSION: Negative carotid ultrasound examination. Head CT 01/28/18 00:00 CONCLUSION: 1. Stable and grossly unremarkable CT scan of the brain compared to the prior examination. . Chest CT 02/09/18 00:00 CONCLUSION: 1. Interval removal of left-sided chest tube. Increase in bilateral pleural effusions with multiple loculations on the left. 2. Increase in bilateral basilar dependent atelectasis and consolidation. Small pericardial effusion slightly increased from prior exam. Chest Tube Insertion 02/09/18 00:00 CONCLUSION: 1. Uncomplicated left chest tube placement as above. 400 mL of straw-colored fluid obtained. Abdomen X-Ray 02/20/18 10:08 CONCLUSION: Feeding tube in the distal stomach. Bowel gas pattern is normal. Chest X-Ray 02/21/18 06:00 CONCLUSION: No significant change. <Bianca Britton E - Last Filed: 02/22/18 16:32> Date of admission: 01/26/18 19:27 Primary care physician: No Primary Care Physician DS: Summary - Time Spent with Patient Total time spent providing and/or coordinating discharge services: Exam Vital signs: Intake & Output 02/21/18 02/22/18 02/22/18 18:59 06:59 18:59 Intake Total 100 / 100 Balance 100 / 100 Intake: IV 100 / 100 Diflucan 200 mg Premix Bag 100 100 / 100 ML @ 100 mls/hr IV.SIG Q24H [facility] Rx#:[id number] Other: Date of Last Bowel Movement 02/21/18 Results - Impressions ITS Impressions Cervical Spine CT 01/26/18 16:23 CONCLUSION: 1. Intact cervical spine. 2. Mild degenerative changes as described. 3. Clavicle and upper rib fractures partly seen on the left with a pneumothorax and neck and chest wall emphysema. CT of the chest is pending. Pelvis X-Ray 01/26/18 16:23 CONCLUSION: 1. No acute fracture or dislocation. 2. Degenerative changes involving the lower lumbar spine. Abdomen/Pelvis CT 01/26/18 17:23 CONCLUSION: 1. No acute visceral organ injury. 2. Mild acute superior endplate compression fracture of L1. 3. Fractures posteriorly of the left sixth through 12th ribs. This is in addition to fractures of the first through fifth ribs that are better seen on the chest CT and please refer to that report. Patient has a small left hemothorax and small moderate left pneumothorax with chest wall emphysema. Lumbar Spine CT 01/26/18 17:23 CONCLUSION: 1. Acute, mild superior endplate compression fracture of L1. 2. Otherwise intact lumbar spine. No subluxations. 3. Multilevel degenerative changes as described. Thoracic Spine CT 01/26/18 17:23 CONCLUSION: 1. Intact thoracic spine. 2. Multiple left posterior rib fractures. Carotid Doppler Study 01/27/18 00:00 CONCLUSION: Negative carotid ultrasound examination. Head CT 01/28/18 00:00 CONCLUSION: 1. Stable and grossly unremarkable CT scan of the brain compared to the prior examination. . Chest CT 02/09/18 00:00 CONCLUSION: 1. Interval removal of left-sided chest tube. Increase in bilateral pleural effusions with multiple loculations on the left. 2. Increase in bilateral basilar dependent atelectasis and consolidation. Small pericardial effusion slightly increased from prior exam. Chest Tube Insertion 02/09/18 00:00 CONCLUSION: 1. Uncomplicated left chest tube placement as above. 400 mL of straw-colored fluid obtained. Abdomen X-Ray 02/20/18 10:08 CONCLUSION: Feeding tube in the distal stomach. Bowel gas pattern is normal. Chest X-Ray 02/21/18 06:00 CONCLUSION: No significant change. Addendum Is doing well ,tolerates trach collar and nausea is better, we will discharge her to [facility] Dis[facility] - Discharge Order Discharge Orders: Discharge Order (Routine); Ordered 02/21/18 Ordered By: Nimisha Geiger - Discharge Details Anticipated Discharge Date: 02/21/18 Discharge Comment: [facility] - [facility] Team Primary Care Provider: Primary Care Physici,No Attending Provider: Estela Lal Other Providers: Patricio Collazo MD ; Chavo Sanchez MD ; [employer] ; Robby Davey MD ; Gracia Nunez ARNP ; Edison Alicea MD ; Bianca Britton MD ; Nimisha Geiger ARNP ; Estela Lal MD ; Lamont Way MD ; Ruben Melo MD ; [employer] ; Walter Lewis MD ; Jenni Henriquez MD ; [facility],[place] ; Jean-Claude Lomas MD
== END 2018-02-21 13:43 ==
LOC: NEPE 16:05 → NEDA 19:27 → N03 21:56
PROVIDERS: ADMIT Surgery; ATTEND Surgery